=== PATIENT | female | born 1985 | race American Indian/Alaskan Native ===

== ENCOUNTER 2021-12-02 20:06 | Emergency (ER) | payer MEDICAID ==
[2021-12-02 20:14] VITALS: BP 139/79
--- NOTE | 2021-12-03 00:16 | Emergency Department Report ---
ED Extremity Problem HPI - General Chief complaint: Laceration/Recheck/Suture Stated complaint: RT FOOT PAIN Time Seen by Provider: 12/02/21 22:39 Source: patient, family Mode of arrival: Ambulatory Limitations: Physical Limitation - History of Present Illness Initial comments: This patient slipped on some stairs on the of this month with subsequent injury of the right foot. She was seen at the [facility] where they x-rayed and placed in a short leg posterior splint on the extremity. The patient has been taking Motrin for pain and was dispensed crutches. She presents to the emergency department complaining of increased swelling pain and a feeling as though her circulation is being cut off. On questioning it does not appear that the patient is keeping the extremity elevated as she should. MD Complaint: extremity pain, extremity swelling (Right foot) -: days(s) Time: 04:00 Location: right - Related Data Previous Rx's Medication Instructions Recorded Last Taken Type Acetaminophen/Codeine [Tylenol 1 tab PO Q4HR PRN #10 tablet 12/03/21 Unknown Rx /Codeine # 3 tab] Allergies Allergy/AdvReac Type Severity Reaction Status Date / Time Penicillins Allergy Unknown Verified 12/02/21 20:17 ED Review of Systems ROS: Stated complaint: RT FOOT PAIN Other details as noted in HPI Constitutional: denies: chills, fever Skin: denies: rash, lesions Neurological: denies: headache, weakness, numbness, paresthesias ED Past Medical Hx - Medications Home Medications: Home Medications Medication Instructions Recorded Confirmed Last Taken Type Acetaminophen/Codeine [Tylenol 1 tab PO Q4HR PRN #10 tablet 12/03/21 Unknown Rx /Codeine # 3 tab] ED Physical Exam - General Limitations: Physical Limitation General appearance: alert, in no apparent distress - Expanded Lower Extremity Exam Right Hip exam: Present: normal inspection Upper Leg exam: Present: normal inspection Knee exam: Present: normal inspection Lower Leg exam: Present: normal inspection Ankle exam: Present: normal inspection Foot/Toe exam: Present: tenderness (Over the fifth metatarsal), swelling, tenderness at base of 5th metatarsal. Absent: crepidus, erythema Neuro vascular tendon exam: Present: no vascular compromise ED Course Vital Signs 12/02/21 12/03/21 20:10 01:26 Temperature 98.1 F Pulse Rate 79 Respiratory 18 14 Rate Blood Pressure 139/79 O2 Sat by Pulse 99 Oximetry ED Medical Decision Making - Radiology Data Radiology results: report reviewed interpreted by me: Nondisplaced fracture of the base of the fifth metatarsal - Medical Decision Making On evaluation of the posterior splint it is noted to be quite dirty on the undersurface was indicated that the patient has been putting weight on it. An x-ray was obtained to evaluate the extremity. Critical care attestation.: If time is entered above; I have spent that time in minutes in the direct care of this critically ill patient, excluding procedure time. ED Disposition Clinical Impression: Closed nondisplaced fracture of fifth right metatarsal bone Qualifiers: Encounter type: subsequent encounter Disposition: 01 HOME / SELF CARE / HOMELESS Is pt being admited?: No Does the pt Need Aspirin: No Condition: Stable Instructions: Crutch Use, Adult, [id number], Cast or Splint Care, Adult, [id number] Additional Instructions: Please ensure that you follow-up with orthopedic surgeon as planned. Rest and elevate the extremity do not bear any weight on the splint Prescriptions: Acetaminophen/Codeine [Tylenol /Codeine # 3 tab] 1 tab PO Q4HR PRN #10 tablet PRN Reason: Pain Referrals: BRITTNEY BATES MD [Staff Physician] - 3-5 Days
[2021-12-03] MEDS ORDERED: ACETAMINOPHEN W/CODEINE 300-30 MG TAB PO ONE (01:11)
--- NOTE | 2021-12-03 01:36 | XRay Report ---
RIGHT ANKLE 2 VIEWS INDICATION / CLINICAL INFORMATION: Recent injury on 11/22/2021. Complaining of right lower extremity pain and numbness and swelling. COMPARISON: None available. FINDINGS: A splint is present over the lower extremity. I do not see a visible fracture or malalignment on the AP and lateral views. However there is moderate diffuse soft tissue swelling especially laterally. IMPRESSION: Moderate soft tissues swelling. No visible fracture or malalignment of the ankle.. Signer Name: Faustina Cabrales MD Signed: 12/03/2021 1:31 AM Workstation Name: [id number]
--- NOTE | 2021-12-03 01:37 | XRay Report ---
RIGHT FOOT 2 VIEWS INDICATION / CLINICAL INFORMATION: Recent injury on 11/22/2021 complaining of right lower extremity numbness, swelling, and pain.. COMPARISON: None available. FINDINGS: There is a nondisplaced transverse fracture through the base of the fifth metatarsal. Views of the foot are somewhat limited due to the presence of a splint. No additional fractures are n oted. No malalignment identified. IMPRESSION: Nondisplaced transverse fracture involving the base of the fifth metatarsal. This appears subacute. Signer Name: Faustina Cabrales MD Signed: 12/03/2021 1:33 AM Workstation Name: [id number]
== END 2021-12-03 02:57 | disposition home or self-care (01) ==
LOC: ED 20:06
DX: S92.354G Nondisplaced fracture of fifth metatarsal bone, right foot, subsequent encounter for fracture with delayed healing (principal); X58.XXXD Exposure to other specified factors, subsequent encounter; Z88.0 Allergy status to penicillin
CPT/HCPCS: 99283

== ENCOUNTER 2022-03-19 20:07 | Emergency (ER) | payer MEDICAID ==
[2022-03-19] MEDS ORDERED: ASPIRIN 325 MG TAB PO ONE (21:13)
--- NOTE | 2022-03-19 22:07 | XRay Report ---
CHEST 2 VIEWS INDICATION / CLINICAL INFORMATION: chestpain. COMPARISON: None available. FINDINGS: SUPPORT DEVICES: None. HEART / MEDIASTINUM: No significant abnormality. LUNGS / PLEURA: No significant pulmonary or pleural abnormality. No pneumothorax. ADDITIONAL FINDINGS: No significant additional findings. IMPRESSION: 1. No acute findings. Signer Name: Faustina Cabrales MD Signed: 03/19/2022 10:03 PM Workstation Name: [id number]
--- NOTE | 2022-03-19 23:19 | Emergency Department Report ---
ED Chest Pain HPI - General Chief Complaint: Chest Pain Stated Complaint: ANXIETY Time Seen by Provider: 03/19/22 23:12 Source: patient Mode of arrival: Stretcher Limitations: No Limitations - History of Present Illness Initial Comments: Patient is a 36-year-old female with no past medical history presenting with complaint of left-sided chest pain beginning yesterday evening and into this morning. She describes the pain as a tightening sensation and also feeling as someone is punching her in the chest. There were no modifying factors. She currently rates her pain a 1 out of 10. - Related Data Previous Rx's Medication Instructions Recorded Last Taken Type Acetaminophen/Codeine [Tylenol 1 tab PO Q4HR PRN #10 tablet 12/03/21 Unknown Rx /Codeine # 3 tab] Allergies Allergy/AdvReac Type Severity Reaction Status Date / Time Penicillins Allergy Unknown Verified 12/02/21 20:17 Heart Score - HEART Score History: Slightly suspicious EKG: Normal Age: < 45 Risk factors: No known risk factors Troponin: < normal limit HEART Score: 0 - EKG Read Time Time EKG Completed: 18:01 EKG Read Time: 18:05 - Critical Actions Critical Actions: 0-3 pts:0.9-1.7%risk of adverse cardiac event.Candidate for discharge ED Review of Systems ROS: Stated complaint: ANXIETY Other details as noted in HPI Constitutional: denies: chills, fever Respiratory: denies: cough, shortness of breath, wheezing Cardiovascular: chest pain. denies: palpitations Endocrine: no symptoms reported Gastrointestinal: denies: abdominal pain, nausea, diarrhea Musculoskeletal: denies: back pain, joint swelling, arthralgia Skin: denies: rash, lesions Neurological: denies: headache, weakness, paresthesias Psychiatric: denies: anxiety, depression ED Past Medical Hx - Past Medical History Previous Medical History?: Yes Hx Psychiatric Treatment: Yes (Anxiety) - Surgical History Past Surgical History?: No - Social History Smoking Status: Never Smoker Substance Use Type: None - Medications Home Medications: Home Medications Medication Instructions Recorded Confirmed Last Taken Type Acetaminophen/Codeine [Tylenol 1 tab PO Q4HR PRN #10 tablet 12/03/21 Unknown Rx /Codeine # 3 tab] ED Physical Exam - General Limitations: No Limitations General appearance: alert, in no apparent distress - Head Head exam: Present: atraumatic, normocephalic - Neck Neck exam: Present: normal inspection - Respiratory Respiratory exam: Present: normal lung sounds bilaterally. Absent: respiratory distress - Cardiovascular Cardiovascular Exam: Present: regular rate, normal rhythm, normal heart sounds - GI/Abdominal GI/Abdominal exam: Present: soft. Absent: distended, tenderness - Rectal Rectal exam: Present: deferred - Neurological Exam Neurological exam: Present: alert, oriented X3 - Psychiatric Psychiatric exam: Present: normal affect, normal mood - Skin Skin exam: Present: warm, dry, intact, normal color ED Course Vital Signs 03/19/22 03/20/22 03/20/22 20:07 00:21 00:30 Temperature 98 F Pulse Rate 76 78 Respiratory 18 25 H 27 H Rate Blood Pressure 124/76 110/68 O2 Sat by Pulse 100 100 Oximetry 03/20/22 03/20/22 03/20/22 00:46 01:00 01:16 Temperature Pulse Rate 83 77 81 Respiratory 29 H 25 H 26 H Rate Blood Pressure 110/68 108/61 108/61 O2 Sat by Pulse 100 100 100 Oximetry 03/20/22 03/20/22 03/20/22 01:30 01:46 02:00 Temperature Pulse Rate 84 90 74 Respiratory 29 H 20 24 Rate Blood Pressure 108/61 108/61 108/61 O2 Sat by Pulse 100 100 100 Oximetry 03/20/22 03/20/22 03/20/22 02:16 02:30 02:46 Temperature Pulse Rate 67 70 74 Respiratory 23 12 23 Rate Blood Pressure 108/61 108/61 108/61 O2 Sat by Pulse 100 99 99 Oximetry 03/20/22 03/20/22 03/20/22 03:00 03:16 03:30 Temperature Pulse Rate 74 79 65 Respiratory 22 28 H 22 Rate Blood Pressure 105/63 105/63 105/63 O2 Sat by Pulse 99 98 99 Oximetry 03/20/22 03:46 Temperature Pulse Rate 65 Respiratory 21 Rate Blood Pressure 105/63 O2 Sat by Pulse 100 Oximetry ED Medical Decision Making - Lab Data Result diagrams: 03/19/22 23:17 03/19/22 23:17 - EKG Data -: EKG Interpreted by Nh EKG shows normal: sinus rhythm, axis, intervals, QRS complexes, ST-T waves - Radiology Data Radiology results: report reviewed No acute findings on chest x-ray. - Medical Decision Making No acute findings on EKG or chest x-ray. CBC and CMP unremarkable. 2 sets of troponins are undetectable. Heart score 0. Patient stable for discharge home with return precautions. Critical care attestation.: If time is entered above; I have spent that time in minutes in the direct care of this critically ill patient, excluding procedure time. ED Disposition Clinical Impression: Acute nonspecific chest pain with low risk of coronary artery disease Disposition: 01 HOME / SELF CARE / HOMELESS Is pt being admited?: No Condition: Stable Instructions: Chest Pain (ED), Nonspecific Chest Pain, Adult Additional Instructions: Please follow-up with your regular doctor as needed. You may return if your symptoms worsen. Time of Disposition: 05:07
[2022-03-19 23:39] LABS: Basophils # (Auto) 0.1 K/mm3 (0.0-0.1); Basophils % (Auto) 0.7 % (0.0-1.8); Eosinophils # (Auto) 0.2 K/mm3 (0.0-0.4); Eosinophils % (Auto) 2.1 % (0.0-4.3); Hematocrit 41.8 % (30.3-42.9); Hemoglobin 13.8 gm/dl (10.1-14.3); Lymphocytes # (Auto) 2.9 K/mm3 (1.2-5.4); Lymphocytes % (Auto) 28.6 % (13.4-35.0); Mean Corpuscular HGB Conc 33 % (30-34); Mean Corpuscular Volume 95 fl (79-97); Monocytes # (Auto) 0.9 K/mm3 (0.0-0.8); Monocytes % (Auto) 8.6 % (0.0-7.3); Platelet Count 226 K/mm3 (140-440); Red Blood Count 4.42 M/mm3 (3.65-5.03)
[2022-03-20 00:03] LABS: Alanine Aminotransferase 12 units/L (7-56); Albumin 4.3 g/dL (3.9-5); BUN/Creatinine Ratio 15; Blood Urea Nitrogen 12 mg/dL (7-17); Hemolysis Index 16
[2022-03-20] MEDS ORDERED: ASPIRIN 81 MG TAB CHEW ONE (00:12)
[2022-03-20 06:12] VITALS: BP 97/63
--- NOTE | 2022-03-20 13:32 | Electrocardiograph Report ---
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
--- NOTE | 2022-03-22 17:01 | Electrocardiograph Report ---
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
== END 2022-03-20 06:13 | disposition home or self-care (01) ==
LOC: ED 20:07
DX: R07.89 Other chest pain (principal); F41.9 Anxiety disorder, unspecified
CPT/HCPCS: 36415; 71046; 80053; 84484; 85025; 93005; 99284

== ENCOUNTER 2022-04-07 10:25 | Emergency (ER) | payer MEDICAID ==
[2022-04-07] MEDS ORDERED: ASPIRIN 325 MG TAB PO ONE (11:37)
--- NOTE | 2022-04-07 11:59 | XRay Report ---
CHEST 2 VIEWS INDICATION / CLINICAL INFORMATION: chest pain. COMPARISON: 03/19/2022 FINDINGS: SUPPORT DEVICES: None. HEART / MEDIASTINUM: No significant abnormality. LUNGS / PLEURA: No significant pulmonary or pleural abnormality. No pneumothorax. ADDITIONAL FINDINGS: No significant additional findings. IMPRESSION: 1. No acute findings. Signer Name: Chuck Moncada DO Signed: 04/07/2022 11:54 AM Workstation Name: [id number]
[2022-04-07 12:29] LABS: Basophils % (Auto) 0.6 % (0.0-1.8); Eosinophils # (Auto) 0.2 K/mm3 (0.0-0.4); Eosinophils % (Auto) 2.2 % (0.0-4.3); Hemoglobin 12.7 gm/dl (10.1-14.3); Lymphocytes # (Auto) 2.1 K/mm3 (1.2-5.4); Lymphocytes % (Auto) 31.2 % (13.4-35.0); Mean Corpuscular HGB Conc 33 % (30-34); Mean Corpuscular Volume 95 fl (79-97); Monocytes # (Auto) 0.8 K/mm3 (0.0-0.8); Monocytes % (Auto) 11.9 % (0.0-7.3); Platelet Count 176 K/mm3 (140-440); Red Blood Count 4.02 M/mm3 (3.65-5.03); Red Cell Distribution Width 13.9 % (13.2-15.2)
[2022-04-07 12:46] LABS: Alanine Aminotransferase 12 units/L (7-56); Albumin 3.8 g/dL (3.9-5); BUN/Creatinine Ratio 11; Blood Urea Nitrogen 8 mg/dL (7-17); Calcium 9.1 mg/dL (8.4-10.2); Hemolysis Index 9
--- NOTE | 2022-04-07 14:13 | Electrocardiograph Report ---
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
--- NOTE | 2022-04-07 15:39 | Emergency Department Report ---
ED Chest Pain HPI - General Chief Complaint: Chest Pain Stated Complaint: CHEST PAIN/REACTION FROM MEDS PUI?: No Time Seen by Provider: 04/07/22 15:15 Source: patient Mode of arrival: Ambulatory Limitations: No Limitations - History of Present Illness Initial Comments: Patient is a 36-year-old female who presents emergency room with complaints of left-sided chest pain. Patient states the chest pain started 3 days ago. Patient states the chest pain is worsening. Patient states the chest pain is better with rest and worse with movement. Patient states the chest pain when she is sitting still is a 2 out of 10. Patient states the chest pain is a 4 out of 10 when she moves her left arm or palpates her left chest. Patient states when she palpates her left chest that reproduces the symptoms. Patient states she has an appointment already with her primary care to evaluate this but she had a increase in the pain and decided to come to the emergency room. Patient denies shortness of breath. Patient denies cough. Patient denies difficulty breathing. Patient denies recent travel. Patient denies recent international travel. Patient denies exposure to the novel coronavirus. Patient denies sick contacts. Patient denies fever and chills. Patient denies cough. Patient denies diarrhea. Patient denies coming in contact with anybody with symptoms of the novel coronavirus. Patient states she has a past medical history of acid reflux, hyperlipidemia, hypothyroidism. Patient states she is currently taking Flagyl for UTI that was given by an urgent care. Patient states that the acid reflux increased when she started taking the Flagyl. Patient states she is taking Pepcid for acid reflux. Patient states she is taking a atorvastatin for her cholesterol. Complaint: chest pain -: Sudden, days(s) Onset: during rest Pain Location: left chest Pain Radiation: none Severity: mild Severity scale (0 -10): 2 Quality: pressure Consistency: constant Improves With: rest Worsens With: palpation, movement re: denies: nausea, vomting, diaphoresis, dyspnea, sense of impending doom Other Symptoms: denies: cough, fever, syncope, rash, acid taste in mouth, leg swelling, palpitations, burping Treatments Prior to Arrival: none Aspirin use within the Past 7 Days: (0) No - Related Data On Oral Contraceptives: No Previous Rx's Medication Instructions Recorded Last Taken Type Acetaminophen/Codeine [Tylenol 1 tab PO Q4HR PRN #10 tablet 12/03/21 Unknown Rx /Codeine # 3 tab] Allergies Allergy/AdvReac Type Severity Reaction Status Date / Time Penicillins Allergy Unknown Verified 12/02/21 20:17 Heart Score - HEART Score History: Slightly suspicious EKG: Normal Age: < 45 Risk factors: No known risk factors Troponin: < normal limit HEART Score: 0 - EKG Read Time Time EKG Completed: 00:00 EKG Read Time: 00:00 ED Review of Systems ROS: Stated complaint: CHEST PAIN/REACTION FROM MEDS Other details as noted in HPI Constitutional: denies: chills, fever Eyes: denies: eye pain, eye discharge, vision change ENT: denies: ear pain, throat pain Respiratory: denies: cough, shortness of breath, wheezing Cardiovascular: as per HPI, chest pain. denies: palpitations Endocrine: no symptoms reported Gastrointestinal: denies: abdominal pain, nausea, diarrhea Genitourinary: denies: urgency, dysuria, discharge Musculoskeletal: denies: back pain, joint swelling, arthralgia Skin: denies: rash, lesions Neurological: denies: headache, weakness, paresthesias Psychiatric: denies: anxiety, depression Hematological/Lymphatic: denies: easy bleeding, easy bruising ED Past Medical Hx - Past Medical History Previous Medical History?: Yes Hx Hypertension: No Hx CVA: No Hx Heart Attack/AMI: No Hx Congestive Heart Failure: No Hx Diabetes: No Hx Deep Vein Thrombosis: No Hx Psychiatric Treatment: Yes (Anxiety) Additional medical history: Hyperlipidemia, hypothyroidism, acid reflux - Surgical History Past Surgical History?: No - Family History Family history: no significant - Social History Smoking Status: Never Smoker Substance Use Type: None - Medications Home Medications: Home Medications Medication Instructions Recorded Confirmed Last Taken Type Acetaminophen/Codeine [Tylenol 1 tab PO Q4HR PRN #10 tablet 12/03/21 Unknown Rx /Codeine # 3 tab] ED Physical Exam - General Limitations: No Limitations General appearance: alert, in no apparent distress - Head Head exam: Present: atraumatic, normocephalic - Eye Eye exam: Present: normal appearance - ENT ENT exam: Present: mucous membranes moist - Neck Neck exam: Present: normal inspection - Respiratory Respiratory exam: Present: normal lung sounds bilaterally, chest wall tenderness (Palpation of the left chest reproduces symptoms. Patient has tenderness to palpation over the left chest. Patient's pain also increased by movement of the left upper extremity.). Absent: respiratory distress - Cardiovascular Cardiovascular Exam: Present: regular rate, normal rhythm. Absent: systolic murmur, diastolic murmur, rubs, gallop - GI/Abdominal GI/Abdominal exam: Present: soft, normal bowel sounds - Extremities Exam Extremities exam: Present: normal inspection - Back Exam Back exam: Present: normal inspection - Neurological Exam Neurological exam: Present: alert, oriented X3 - Psychiatric Psychiatric exam: Present: normal affect, normal mood - Skin Skin exam: Present: warm, dry, intact, normal color. Absent: rash ED Course Vital Signs 04/07/22 11:01 Temperature 98.5 F Pulse Rate 72 Respiratory 18 Rate Blood Pressure 133/88 [Left] O2 Sat by Pulse 100 Oximetry - Reevaluation(s) Reevaluation #1: I discussed all results and clinical findings with patient. I discussed plan of care with patient. Patient agrees with plan of care. Patient is stable for discharge. Patient will be discharged home. Patient given discharge instructions. Patient voiced understanding of discharge instructions. 04/07/22 15:38 GRAHAM score - Graham Score Age > 65: (0) No Aspirin use within the Past 7 Days: (0) No 3 or more CAD Risk Factors: (0) No 2 or more Angina events in past 24 hrs: (0) No Known CAD with more than 50% Stenosis: (0) No Elevated Cardiac Markers: (0) No ST Deviation Greater than 0.5mm: (0) No GRAHAM Score: 0 ED Medical Decision Making - Lab Data Result diagrams: 04/07/22 12:04 04/07/22 12:04 - EKG Data -: EKG Interpreted by Me EKG shows normal: sinus rhythm, axis, intervals, QRS complexes, ST-T waves Rate: normal - Radiology Data Radiology results: report reviewed, image reviewed interpreted by me: Chest x-ray: No pneumonia, no pneumothorax, no foreign body, no osseous findings, no acute findings CHEST 2 VIEWS INDICATION / CLINICAL INFORMATION: chest pain. COMPARISON: 03/19/2022 FINDINGS: SUPPORT DEVICES: None. HEART / MEDIASTINUM: No significant abnormality. LUNGS / PLEURA: No significant pulmonary or pleural abnormality. No pneumothorax. ADDITIONAL FINDINGS: No significant additional findings. IMPRESSION: 1. No acute findings. - Medical Decision Making Patient is a 36-year-old female who presents emergency room with left-sided chest pain going on for 3 days. Patient's chest pain is consistent with a left chest sprain and musculoskeletal pain. Patient on exam showed tenderness to palpation over the left chest as well as increased pain with movement of the left upper extremity. Patient's chest pain was nonradiating. Patient had no shortness of breath. Patient had a chest x-ray done was negative for acute finding. Patient had an EKG done which was negative for acute findings showed no ST changes. Patient's EKG and chest x-ray reviewed by me. Patient had labs done. Patient's labs were essentially unremarkable. Patient had cardiac enzymes negative x2. Patient's chest pain is not appear to be heart related. Patient is stable for discharge. Patient not require any further emergency medical service. Patient can be followed as an outpatient. Patient not require inpatient services. I discussed all results and clinical findings with patient. I discussed plan of care with patient. Patient agrees with plan of care. Patient is stable for discharge. Patient will be discharged home. Patient given discharge instructions. Patient voiced understanding of discharge instructions. - Differential Diagnosis Chest pain, acid reflux, muscular skeletal pain, chest wall sprain Critical care attestation.: If time is entered above; I have spent that time in minutes in the direct care of this critically ill patient, excluding procedure time. ED Disposition Clinical Impression: Chest pain Qualifiers: Chest pain type: unspecified Qualified Code(s): R07.9 - Chest pain, unspecified Sprain of chest wall Qualifiers: Encounter type: initial encounter Qualified Code(s): S23.8XXA - Sprain of other specified parts of thorax, initial encounter Disposition: 01 HOME / SELF CARE / HOMELESS Is pt being admited?: No Does the pt Need Aspirin: No Condition: Stable Instructions: Chest Wall Pain, [id number], Nonspecific Chest Pain, Adult Additional Instructions: Patient to follow-up with primary care in 2 to 3 days. Patient to rest. Patient to increase water. Patient to avoid strenuous exercise or heavy lifting until cleared by primary care. Patient to take Tylenol or ibuprofen as needed for pain. Patient to return to the ER if condition worsens, changes or new symptoms arise. Referrals: YOANA OSEGUERA PA [Primary Care Provider] - 2-3 Days Time of Disposition: 15:42
[2022-04-07 18:19] VITALS: BP 112/80
== END 2022-04-07 18:21 | disposition home or self-care (01) ==
LOC: ED 10:25
DX: S23.8XXA Sprain of other specified parts of thorax, initial encounter (principal); R07.9 Chest pain, unspecified; F41.9 Anxiety disorder, unspecified; Z88.0 Allergy status to penicillin; X58.XXXA Exposure to other specified factors, initial encounter; Y93.89 Activity, other specified; Y92.89 Other specified places as the place of occurrence of the external cause; Y99.8 Other external cause status
CPT/HCPCS: 36415; 71046; 80053; 84484; 85025; 93005; 99283

== ENCOUNTER 2022-04-21 18:02 | Inpatient (IN) | payer MEDICAID ==
[2022-04-21 18:53] LABS: Basophils # (Auto) 0.1 K/mm3 (0.0-0.1); Basophils % (Auto) 0.7 % (0.0-1.8); Eosinophils # (Auto) 0.2 K/mm3 (0.0-0.4); Eosinophils % (Auto) 1.5 % (0.0-4.3); Hematocrit 38.5 % (30.3-42.9); Hemoglobin 12.6 gm/dl (10.1-14.3); Lymphocytes # (Auto) 2.2 K/mm3 (1.2-5.4); Lymphocytes % (Auto) 16.6 % (13.4-35.0); Mean Corpuscular HGB Conc 33 % (30-34); Mean Corpuscular Volume 94 fl (79-97); Monocytes # (Auto) 1.1 K/mm3 (0.0-0.8); Monocytes % (Auto) 8.4 % (0.0-7.3); Platelet Count 198 K/mm3 (140-440); Red Blood Count 4.08 M/mm3 (3.65-5.03); Red Cell Distribution Width 14.3 % (13.2-15.2)
--- NOTE | 2022-04-21 18:54 | Emergency Department Report ---
ED Neuro Deficit HPI - General Chief Complaint: Weakness Stated Complaint: LT SIDE NUMBNESS Time Seen by Provider: 04/21/22 18:45 Source: patient, EMS Mode of arrival: Ambulatory Limitations: No Limitations - History of Present Illness Initial Comments: Patient is a 36-year-old female with complaints of left-sided weakness and left- sided numbness and tingling. Patient states she has a prior stroke but she is having increased weakness on her left side. Patient dates she have difficulty walking. Patient states that her symptoms started last night however improved and returned today at 5 PM. Patient's last known well time was 5 PM. Patient denies chest pain. Patient denies shortness of breath. Patient states that he is having difficulties feeling her left arm and left leg. Patient denies recent travel. Patient denies recent international travel. Patient denies exposure to the novel coronavirus. Patient denies sick contacts. Patient denies fever and chills. Patient denies cough. Patient denies diarrhea. Patient denies coming in contact with anybody with symptoms of the novel coronavirus. -: Sudden Presenting Symptoms: Present: Weak/Paralyzed One Side History of same: Yes Place: home Severity: severe Improves With: none Worsens With: none On Anticoagulants: No Context: sudden onset Associated Symptoms: denies other symptoms - Related Data Home Medications: Previous Rx's Medication Instructions Recorded Last Taken Type Acetaminophen/Codeine [Tylenol 1 tab PO Q4HR PRN #10 tablet 12/03/21 Unknown Rx /Codeine # 3 tab] Allergies/Adverse Reactions: Allergies Allergy/AdvReac Type Severity Reaction Status Date / Time Penicillins Allergy Unknown Verified 04/21/22 18:27 ED Review of Systems ROS: Stated complaint: LT SIDE NUMBNESS Other details as noted in HPI Constitutional: denies: chills, fever Eyes: denies: eye pain, eye discharge, vision change ENT: denies: ear pain, throat pain Respiratory: denies: cough, shortness of breath, wheezing Cardiovascular: denies: chest pain, palpitations Endocrine: no symptoms reported Gastrointestinal: denies: abdominal pain, nausea, diarrhea Genitourinary: denies: urgency, dysuria, discharge Musculoskeletal: denies: back pain, joint swelling, arthralgia Skin: denies: rash, lesions Neurological: as per HPI, weakness, numbness, abnormal gait. denies: headache Psychiatric: denies: anxiety, depression Hematological/Lymphatic: denies: easy bleeding, easy bruising ED Past Medical Hx - Past Medical History Previous Medical History?: Yes Hx Hypertension: Yes Hx CVA: Yes Hx Heart Attack/AMI: No Hx Congestive Heart Failure: No Hx Diabetes: No Hx Deep Vein Thrombosis: No Hx Psychiatric Treatment: Yes (Anxiety) Additional medical history: Hyperlipidemia, hypothyroidism, acid reflux - Surgical History Past Surgical History?: No - Family History Family history: no significant - Social History Smoking Status: Never Smoker Substance Use Type: None - Medications Home Medications: Home Medications Medication Instructions Recorded Confirmed Last Taken Type Acetaminophen/Codeine [Tylenol 1 tab PO Q4HR PRN #10 tablet 12/03/21 Unknown Rx /Codeine # 3 tab] ED Neuro Physical Exam - General Limitations: No Limitations General appearance: alert, in no apparent distress Suspected Stroke: Yes - Head Head exam: Present: atraumatic, normocephalic - Eye Eye exam: Present: normal appearance - ENT ENT exam: Present: mucous membranes moist - Neck Neck exam: Present: normal inspection - Respiratory Respiratory exam: Present: normal lung sounds bilaterally. Absent: respiratory distress, wheezes, rales, rhonchi - Cardiovascular Cardiovascular Exam: Present: regular rate, normal rhythm. Absent: systolic murmur, diastolic murmur, rubs, gallop - GI/Abdominal GI/Abdominal exam: Present: soft, normal bowel sounds - Extremities Exam Extremities exam: Present: normal inspection - Back Exam Back exam: Present: normal inspection - Neurological Exam Neurological exam: Present: alert, oriented X3 - NIHSS Assessment Interval: Baseline 1a. Level of Consciousness: alert/keenly responsive 1b. LOC Questions: answers both correctly 1c. LOC Commands: performs tasks correctly 2. Best Gaze: normal 3. Visual: no visual loss 4. Facial Palsy: normal symmetrical movement 5b. Motor Arm Right: no drift 5a. Motor Arm Left: no gravity effort 6a. Motor Leg Left: no drift 6b. Motor Leg Right: no drift 7. Limb Ataxia: absent 8. Sensory: normal 9. Best Language: no aphasia 10. Dysarthria: normal 11. Extinction/Inattention: no abnormality Total Score: 3 Stroke Severity: Minor Stroke - Psychiatric Psychiatric exam: Present: normal affect, normal mood - Skin Skin exam: Present: warm, dry, intact, normal color. Absent: rash ED Course Vital Signs 04/21/22 18:03 Temperature 97.9 F Pulse Rate 93 H Respiratory 18 Rate Blood Pressure 141/99 [Left] O2 Sat by Pulse 100 Oximetry - Reevaluation(s) Reevaluation #1: Patient evaluated. Initial evaluation done. Code stroke initiated. 04/21/22 184 Reevaluation #2: I discussed all results with patient. I discussed plan of care with patient. Patient agrees with plan of care and admission. Patient to be admitted to the hospitalist service. 04/21/22 20:07 - Consultations Consultation #1: I discussed the case with neurology multiple times. Neurology assessed the patient and does not recommend tPA. Neurology also does not recommend a CTA in the ER. Neurology recommends admission for further stroke work-up due to her history of stroke. 04/21/22 19:57 - Lab Data Result diagrams: 04/21/22 18:40 04/21/22 18:40 Lab Results 04/21/22 04/21/22 04/21/22 Range/Units 18:40 18:40 18:40 WBC 13.3 H (4.5-11.0) K/mm3 RBC 4.08 (3.65-5.03) M/mm3 Hgb 12.6 (10.1-14.3) gm/dl Hct 38.5 (30.3-42.9) % MCV 94 (79-97) fl MCH 31 (28-32) pg MCHC 33 (30-34) % RDW 14.3 (13.2-15.2) % Plt Count 198 (140-440) K/mm3 Lymph % (Auto) 16.6 (13.4-35.0) % [place] % (Auto) 8.4 H (0.0-7.3) % Eos % (Auto) 1.5 (0.0-4.3) % Baso % (Auto) 0.7 (0.0-1.8) % Lymph # (Auto) 2.2 (1.2-5.4) K/mm3 [place] # (Auto) 1.1 H (0.0-0.8) K/mm3 Eos # (Auto) 0.2 (0.0-0.4) K/mm3 Baso # (Auto) 0.1 (0.0-0.1) K/mm3 Seg Neutrophils % 72.8 H (40.0-70.0) % Seg Neutrophils # 9.6 H (1.8-7.7) K/mm3 PT 78.7 H (12.2-14.9) Sec. INR 7.81 H* (0.87-1.13) APTT 92.7 H* (24.2-36.6) Sec. Thrombin Time 14.5 L (15.1-19.6) Sec. Sodium 135 L (137-145) mmol/L Potassium 3.5 L (3.6-5.0) mmol/L Chloride 100.5 (98-107) mmol/L Carbon Dioxide 23 (22-30) mmol/L Anion Gap 15 mmol/L BUN 6 L (7-17) mg/dL Creatinine 0.8 (0.6-1.2) mg/dL Estimated GFR > 60 ml/min BUN/Creatinine Ratio 8 % Glucose 85 (65-100) mg/dL Calcium 8.8 (8.4-10.2) mg/dL Total Bilirubin 0.80 (0.1-1.2) mg/dL AST 12 (5-40) units/L ALT 10 (7-56) units/L Alkaline Phosphatase 36 (35-129) units/L Total Creatine Kinase 37 (30-135) units/L CK-MB (CK-2) < 1.0 (0.0-4.0) ng/mL CK-MB (CK-2) Rel Index 2.7 (0-4) Troponin T < 0.010 (0.00-0.029) ng/mL Total Protein 7.4 (6.3-8.2) g/dL Albumin 3.9 (3.9-5) g/dL Albumin/Globulin Ratio 1.1 % - Radiology Data Radiology results: report reviewed, image reviewed CT head/brain wo con INDICATION / CLINICAL INFORMATION: 36 years Female; Stroke symptoms. TECHNIQUE: Routine CT head without contrast. All CT scans at this location are performed using CT dose reduction for ALARA by means of automated exposure control. COMPARISON: None. FINDINGS: BRAIN / INTRACRANIAL CONTENTS: No acute hemorrhage, mass effect, midline shift, hydrocephalus, or acute, large territorial infarct. No signs of significant atrophy or chronic infarct. No significant white matter abnormality seen. CRANIOCERVICAL JUNCTION: No significant abnormality. ORBITS: No significant abnormality of visualized orbits. SINUSES / MASTOIDS: Visualized paranasal sinuses and mastoid air cells are essentially clear. ADDITIONAL FINDINGS: None. IMPRESSION: 1. No focal mass, hemorrhage, hydrocephalus, or acute, large territorial infarct. - Medical Decision Making Patient is a 36-year-old female with a history of stroke that presents emergency room with left-sided weakness and left-sided numbness and tingling. Patient initially stated that she was having difficulties moving the left upper extremity more than usual. During the time in the ER the patient states that her left arm movement returned to normal. Patient still complains of left-sided numbness. A code stroke was initiated after the initial evaluation. Patient evaluated by neurology. Neurology did not recommend tPA or CTA in the ER. Neurology recommends admission for stroke work-up with an MRI and MRA. Patient had labs done which were essentially unremarkable except for a supratherapeutic INR. Patient admitted to the hospital service for further evaluation treatment. Critical care time documented due to the multiple reassessments, prolonged time at the bedside, interpretation of diagnostics and labs and discussion with consultants.. - Differential Diagnosis CVA, left-sided weakness, left-sided numbness Critical Care Time: Yes Critical care time in (mins) excluding proc time.: 35 Critical care attestation.: If time is entered above; I have spent that time in minutes in the direct care of this critically ill patient, excluding procedure time. Critical Care Time: 35 minutes ED Disposition Clinical Impression: Left-sided weakness, Numbness on left side, Supratherapeutic INR CVA (cerebral vascular accident) Qualifiers: CVA mechanism: unspecified Qualified Code(s): I63.9 - Cerebral infarction, unspecified Disposition: ADMITTED INPATIENT Is pt being admited?: Yes Does the pt Need Aspirin: No Condition: Critical Time of Disposition: 20:06
[2022-04-21 19:11] LABS: Alanine Aminotransferase 10 units/L (7-56); Albumin 3.9 g/dL (3.9-5); BUN/Creatinine Ratio 8; Blood Urea Nitrogen 6 mg/dL (7-17); Calcium 8.8 mg/dL (8.4-10.2); Hemolysis Index 7
[2022-04-21 19:12] LABS: Creatine Kinase MB < 1.0 ng/mL (0.0-4.0); Thrombin Time 14.5 Sec. (15.1-19.6)
--- NOTE | 2022-04-21 19:15 | Cat Scan Report ---
CT head/brain wo con INDICATION / CLINICAL INFORMATION: 36 years Female; Stroke symptoms. TECHNIQUE: Routine CT head without contrast. All CT scans at this location are performed using CT dos e reduction for ALARA by means of automated exposure control. COMPARISON: None. FINDINGS: BRAIN / INTRACRANIAL CONTENTS: No acute hemorrhage, mass effect, midline shift, hydrocephalus, or acu te, large territorial infarct. No signs of significant atrophy or chronic infarct. No significant whi te matter abnormality seen. CRANIOCERVICAL JUNCTION: No significant abnormality. ORBITS: No significant abnormality of visualized orbits. SINUSES / MASTOIDS: Visualized paranasal sinuses and mastoid air cells are essentially clear. ADDITIONAL FINDINGS: None. IMPRESSION: 1. No focal mass, hemorrhage, hydrocephalus, or acute, large territorial infarct. CODE STROKE: Exam Completed (SUPERVISOR BRIAR SHOP/CDT): 04/21/2022 558 PM Exam Reviewed (SUPERVISOR BRIAR SHOP/CDT): 6:07 PM Time of Communication (SUPERVISOR BRIAR SHOP/CDT): 6:09 PM Licensed Practitioner Receiving Report: Dr. Jarquin Signer Name: Deep Beaver MD, III Signed: 04/21/2022 7:10 PM Workstation Name: [email or web address]
[2022-04-21 19:45] LABS: INR 7.81 (0.87-1.13)
[2022-04-21 19:46] LABS: Partial Thromboplastin Time 92.7 Sec. (24.2-36.6)
--- NOTE | 2022-04-21 20:00 | History and Physical Report ---
History of Present Illness Chief complaint: I am weak and numb on my left side History of present illness: 36 YO Female with Obesity, Autism, HTN, CVA, HLD, Hypothyroidism, GERD presents to ED for evaluation. Patient reports "I am weak and I am on my left side". Patient states that she has experienced sudden onset of weakness on her left side. Patient acknowledges difficulty with balance. EMS was notified and upon arrival the patient was found to be in distress with a new focal neurologic deficit. A code stroke was called and the patient was transported to [facility] for further care and evaluation of the aforementioned symptoms. The patient was seen and evaluated in the emergency department. All lab and imaging studies reviewed. Patient found to have a focal neurologic deficit with clinical symptoms consistent with acute CVA. Patient admitted to medical floor and initiated on CVA protocol due to increased risk of worsening symptoms and for medical stabilization. Patient denies fever, chills, chest pain, palpitation, productive cough, skin rash and recent contact, known exposure to COVID-19. No prior admission for review. No medication listed at time of admission for reconciliation. Advanced care planning conducted in ED. Past History Past Medical History: hypertension, hyperlipidemia, stroke, other (See HPI) Past Surgical History: No surgical history, Other (Reviewed) Social history: single, lives with family. denies: smoking, alcohol abuse, prescription drug abuse Family history: diabetes, hypertension Medications and Allergies Allergies Allergy/AdvReac Type Severity Reaction Status Date / Time Penicillins Allergy Unknown Verified 04/21/22 18:27 Home Medications Medication Instructions Recorded Confirmed Last Taken Type Acetaminophen/Codeine [Tylenol 1 tab PO Q4HR PRN #10 tablet 12/03/21 Unknown Rx /Codeine # 3 tab] Review of Systems Constitutional: no weight loss, no weight gain, no fever, no sweats Ears, nose, mouth and throat: no ear pain, no tinnitis, no nose pain, no nasal congestion Breasts: no change in shape, no mass Cardiovascular: no orthopnea, no palpitations, no edema, no lightheadedness Respiratory: no cough with sputum, no hemoptysis, no shortness of breath Gastrointestinal: no abdominal pain, no nausea, no diarrhea, no constipation Genitourinary Female: no pelvic pain, no flank pain, no dysuria, no urinary frequency, no stress incontinence Rectal: no pain, no incontinence, no bleeding Musculoskeletal: no neck stiffness, no shooting arm pain, no arm numbness/tingling Integumentary: no rash, no sores, no wounds, no jaundice, no blisters Neurological: ataxia, balance difficulties, gait dysfunction, motor disturbance Psychiatric: no anxiety, no memory loss, no change in sleep habits, no insomnia, no hypersomnia, no change in libido, no suicidal ideation Endocrine: no heat intolerance, no polydipsia, no polyuria, no excessive sweating, no flushing Hematologic/Lymphatic: no easy bruising, no lymphadenopathy, no lymphedema Allergic/Immunologic: no urticaria, no allergic rhinitis, no wheezing, no persistent infections Exam - Constitutional Vitals: Temp Pulse Resp BP Pulse Ox 97.9 F 93 H 18 141/99 100 04/21/22 18:03 04/21/22 18:03 04/21/22 18:03 04/21/22 18:03 04/21/22 18:03 General appearance: Present: mild distress - EENT Eyes: Present: PERRL ENT: hearing intact, clear oral mucosa - Neck Neck: Present: supple, normal ROM - Respiratory Respiratory effort: normal Respiratory: bilateral: CTA - Cardiovascular Heart Sounds: Present: S1 & S2. Absent: rub, click - Extremities Extremities: pulses symmetrical, No edema Peripheral Pulses: within normal limits - Abdominal General gastrointestinal: Present: soft, non-tender, non-distended, normal bowel sounds Female genitourinary: Present: normal - Integumentary Integumentary: Present: clear, warm, dry - Musculoskeletal Musculoskeletal: left sided weakness - Psychiatric Psychiatric: appropriate mood/affect, intact judgment & insight - Neurologic Neurologic: CNII-XII intact, moves all extremities HEART Score - HEART Score Troponin: Troponin T < 0.010 ng/mL (0.00-0.029) 04/21/22 18:40 Results - Labs CBC & Chem 7: 04/21/22 18:40 04/21/22 18:40 Labs: Abnormal lab results 04/21/22 04/21/22 04/21/22 Range/Units 18:40 18:40 18:40 WBC 13.3 H (4.5-11.0) K/mm3 [place] % (Auto) 8.4 H (0.0-7.3) % [place] # (Auto) 1.1 H (0.0-0.8) K/mm3 Seg Neutrophils % 72.8 H (40.0-70.0) % Seg Neutrophils # 9.6 H (1.8-7.7) K/mm3 PT 78.7 H (12.2-14.9) Sec. INR 7.81 H* (0.87-1.13) APTT 92.7 H* (24.2-36.6) Sec. Thrombin Time 14.5 L (15.1-19.6) Sec. Sodium 135 L (137-145) mmol/L Potassium 3.5 L (3.6-5.0) mmol/L BUN 6 L (7-17) mg/dL Assessment and Plan - Patient Problems (1) CVA (cerebral vascular accident) Current Visit: Yes Status: Acute Qualifiers: CVA mechanism: unspecified Qualified Code(s): I63.9 - Cerebral infarction, unspecified Plan to address problem: CVA protocol: CT scan head, physical therapy consulted, Occupational Therapy consulted, speech therapy consulted, antiplatelet therapy, lipid panel, statin therapy, telemetry neurology consulted, echocardiogram, carotid Doppler. (2) Left hemiparesis Current Visit: Yes Status: Acute Plan to address problem: Physical therapy consulted, supportive care. (3) SIRS (systemic inflammatory response syndrome) Current Visit: Yes Status: Acute Plan to address problem: CBC, urinalysis, chest x-ray, empiric IV antibiotic therapy x1 dose, repeat CBC in AM. (4) Hyponatremia syndrome Current Visit: Yes Status: Acute Plan to address problem: IV fluid resuscitation therapy, BMP, repeat BMP in a.m. (5) Supratherapeutic INR Current Visit: Yes Status: Acute Plan to address problem: Hold anticoagulation at this time. Repeat INR in AM. (6) DVT prophylaxis Current Visit: Yes Status: Acute (7) Advance care planning Current Visit: Yes Status: Acute Plan to address problem: Disease education done, care plan discussed, diagnosis discussed, prognosis discussed, patient is full code. Patient knowledges understanding agreement with care plan, +30 minutes. (8) Preventative health care Current Visit: Yes Status: Acute Plan to address problem: Patient counseled guarding medication compliance, outpatient follow-up with primary care physician for all age and risk factor appropriate screening test.
[2022-04-21] MEDS ORDERED: ALBUTEROL 2.5 MG/3 ML NEBU IH PRN (20:02)
[2022-04-21] MEDS ORDERED: HYDROmorphone 0.5 MG/0.5 ML INJ IV PRN (20:02)
[2022-04-21] MEDS ORDERED: MAGNESIUM HYDROXIDE (MOM) ORAL LIQD UDC PO PRN (20:02)
[2022-04-21] MEDS ORDERED: PROMETHAZINE 25 MG RECT SUPP PR PRN (20:02)
[2022-04-21] MEDS ORDERED: ONDANSETRON 4 MG/2 ML INJ IV PRN (20:02)
[2022-04-21] MEDS ORDERED: METOCLOPRAMIDE 10 MG TAB PO PRN (20:02)
[2022-04-21] MEDS ORDERED: ACETAMINOPHEN 325 MG TAB PO PRN (20:02)
--- NOTE | 2022-04-21 20:02 | Emergency Department Report ---
Blank Doc - Documentation Documentation: [facility] [place] [facility] Consult Note # Demographics Consult Type: Acute Stroke Level 1 (0-4.5 hrs) Patient Location: Emergency Room First Name: Sid Last Name: Radu Date of : 1985 Age: 36 Facility: [facility] Time of Initial Page (Eastern Time): 04/21/2022, 19:34 Time of Return Call (Eastern Time): 04/21/2022, 19:34 # HPI History: 36 year old female who presented with left arm numbness and weakness. Weakness resolved. As per patient, her symptoms have been ongoing for about 2 weeks and she felt they got worse today. Last Known Normal: 2 weeks? # Scores Level of Consciousness 1a: [0] = Alert; keenly responsive LOC Questions 1b: [0] = Answers both questions correctly LOC Commands 1c: [0] = Performs both tasks correctly Best Gaze 2: [0] = Normal Visual 3: [0] = No visual loss Facial Palsy 4: [0] = Normal symmetrical movements Motor Arm Left 5a: [0] = No drift Motor Arm Right 5b: [0] = No drift Motor Leg Left 6a: [0] = No drift Motor Leg Right 6b: [0] = No drift Limb Ataxia 7: [0] = Absent Sensory 8: [1] = [id number] sensory loss Best Language 9: [0] = No aphasia Dysarthria 10: [0] = Normal Extinction and Inattention 11: [0] = No abnormality NIHSS Total: 1 # PMH-FH-SH Past Medical History: hyperlipidemia hypertension Social History: non-smoker non-drinker no drugs lives with family # Data Head CT: no bleed per radiologist read # Assessment Impression: Concern for TIA given worsening of weakness that has since subsided. # Plan Thrombolytic/Intervention: NOT IV Thrombolysis or IA Intervention candidate Thrombolytic Exclusion (< 3 hour window): non-disabling deficit Thrombolytic Exclusion: > 4.5 hours Intraarterial Exclusion: cta pending Blood Pressure Management: IV fluid bolus Target Blood Pressure: SBP < 220 DBP < 105 Labs: CBC comprehensive metabolic panel hemoglobin A1c lipid panel troponin TSH ua Imaging: (urgency: STAT): CT Head without contrast Imaging: (urgency: routine): MR Angiogram Head without contrast MRI Brain without contrast MRA neck without Diagnostic Test: echo with bubble study Medication: aspirin 81 mg daily start statin with goal of LDL < 70 Other: If patient has any neurological deterioration please call me back immediately permissive hypertension telemetry monitoring would not pursue stroke work-up if MRI is negative I have discussed my recommendations with the referring provider Permissive HTN for 24 hours
--- NOTE | 2022-04-21 20:36 | XRay Report ---
CHEST 1 VIEW INDICATION: cough. COMPARISON: 04/07/2022 FINDINGS: Support devices: None. Heart: Normal. Lungs/Pleura: There are mild increased interstitial/reticular opacities. No consolidation or effusion . No pneumothorax. IMPRESSION: 1. Mild increased interstitial opacities could be seen in the setting of lower airways disease or aty pical pneumonia. No focal consolidation. Signer Name: Gregor James MD Signed: 04/21/2022 8:31 PM Workstation Name: [id number]
[2022-04-21] MEDS ORDERED: cefTRIAXone/NS 1 GM/50 ML 1 GM/50 ML BAG IV ONE (21:45)
[2022-04-22 03:48] LABS: Bilirubin,Urine Negative (Negative); Blood,Urine Moderate (Negative); Color,Urine Colorless (Yellow)
[2022-04-22 03:50] LABS: Bacteria,Urine 1+ /HPF (Negative); Mucus,Urine FEW /HPF; WBC,Urine > 182.0 /HPF (0.0-6.0)
[2022-04-22 06:15] LABS: INR 0.96 (0.87-1.13)
[2022-04-22] MEDS: ASPIRIN 325 MG TAB PO SCH (10:52)
--- NOTE | 2022-04-22 10:59 | Progress Note ---
Assessment and Plan Assessment and plan: 36 YO Female with Obesity, Autism, HTN, CVA, HLD, Hypothyroidism, GERD presents to ED for evaluation of sudden onset of weakness on her left side. Patient also reported difficulty with balance. EMS was notified and upon arrival the patient was found to be in distress with a new focal neurologic deficit. A code stroke was called and the patient was transported to [facility] for further care and evaluation of the aforementioned symptoms. The patient was seen and evaluated in the emergency department. All lab and imaging studies reviewed. Patient found to have a focal neurologic deficit with clinical symptoms consistent with acute CVA. Acute CVA Left hemiparesis SIRS Hyponatremia Supratherapeutic INR 04/22/2022. Follow-up echocardiogram and order MRI brain. PT/OT/ST evaluations pending. Continue aspirin and Lipitor for now. Neurology consultation when available. History Interval history: No new issues overnight Hospitalist Physical - Constitutional Vitals: Temp Pulse Resp BP Pulse Ox 99.2 F 85 17 116/53 97 04/21/22 21:40 04/21/22 21:40 04/22/22 00:24 04/21/22 21:40 04/22/22 09:20 General appearance: Present: mild distress - EENT Eyes: Present: PERRL, EOM intact ENT: hearing intact, clear oral mucosa, dentition normal - Neck Neck: Present: supple, normal ROM - Respiratory Respiratory effort: normal Respiratory: bilateral: CTA - Cardiovascular Rhythm: regular Heart Sounds: Present: S1 & S2. Absent: gallop, rub - Extremities Extremities: no ischemia, No edema, Full ROM - Abdominal General gastrointestinal: soft, non-tender, non-distended, normal bowel sounds - Integumentary Integumentary: Present: clear, warm, dry - Neurologic Neurologic: CNII-XII intact, moves all extremities HEART Score - HEART Score Troponin: Troponin T < 0.010 ng/mL (0.00-0.029) 04/21/22 18:40 Results - Labs CBC & Chem 7: 04/21/22 18:40 04/21/22 18:40 Labs: Laboratory Last Values WBC 13.3 K/mm3 (4.5-11.0) H 04/21/22 18:40 RBC 4.08 M/mm3 (3.65-5.03) 04/21/22 18:40 Hgb 12.6 gm/dl (10.1-14.3) 04/21/22 18:40 Hct 38.5 % (30.3-42.9) 04/21/22 18:40 MCV 94 fl (79-97) 04/21/22 18:40 MCH 31 pg (28-32) 04/21/22 18:40 MCHC 33 % (30-34) 04/21/22 18:40 RDW 14.3 % (13.2-15.2) 04/21/22 18:40 Plt Count 198 K/mm3 (140-440) 04/21/22 18:40 Lymph % (Auto) 16.6 % (13.4-35.0) 04/21/22 18:40 [place] % (Auto) 8.4 % (0.0-7.3) H 04/21/22 18:40 Eos % (Auto) 1.5 % (0.0-4.3) 04/21/22 18:40 Baso % (Auto) 0.7 % (0.0-1.8) 04/21/22 18:40 Lymph # (Auto) 2.2 K/mm3 (1.2-5.4) 04/21/22 18:40 [place] # (Auto) 1.1 K/mm3 (0.0-0.8) H 04/21/22 18:40 Eos # (Auto) 0.2 K/mm3 (0.0-0.4) 04/21/22 18:40 Baso # (Auto) 0.1 K/mm3 (0.0-0.1) 04/21/22 18:40 Seg Neutrophils % 72.8 % (40.0-70.0) H 04/21/22 18:40 Seg Neutrophils # 9.6 K/mm3 (1.8-7.7) H 04/21/22 18:40 PT 14.1 Sec. (12.2-14.9) 04/22/22 04:37 INR 0.96 (0.87-1.13) 04/22/22 04:37 APTT 92.7 Sec. (24.2-36.6) H* 04/21/22 18:40 Thrombin Time 14.5 Sec. (15.1-19.6) L 04/21/22 18:40 Sodium 135 mmol/L (137-145) L 04/21/22 18:40 Potassium 3.5 mmol/L (3.6-5.0) L 04/21/22 18:40 Chloride 100.5 mmol/L (98-107) 04/21/22 18:40 Carbon Dioxide 23 mmol/L (22-30) 04/21/22 18:40 Anion Gap 15 mmol/L 04/21/22 18:40 BUN 6 mg/dL (7-17) L 04/21/22 18:40 Creatinine 0.8 mg/dL (0.6-1.2) 04/21/22 18:40 Estimated GFR > 60 ml/min 04/21/22 18:40 BUN/Creatinine Ratio 8 % 04/21/22 18:40 Glucose 85 mg/dL (65-100) 04/21/22 18:40 POC Glucose 104 mg/dL (70-105) 04/22/22 00:18 Calcium 8.8 mg/dL (8.4-10.2) 04/21/22 18:40 Total Bilirubin 0.80 mg/dL (0.1-1.2) 04/21/22 18:40 AST 12 units/L (5-40) 04/21/22 18:40 ALT 10 units/L (7-56) 04/21/22 18:40 Alkaline Phosphatase 36 units/L (35-129) 04/21/22 18:40 Total Creatine Kinase 37 units/L (30-135) 04/21/22 18:40 CK-MB (CK-2) < 1.0 ng/mL (0.0-4.0) 04/21/22 18:40 CK-MB (CK-2) Rel Index 2.7 (0-4) 04/21/22 18:40 Troponin T < 0.010 ng/mL (0.00-0.029) 04/21/22 18:40 Total Protein 7.4 g/dL (6.3-8.2) 04/21/22 18:40 Albumin 3.9 g/dL (3.9-5) 04/21/22 18:40 Albumin/Globulin Ratio 1.1 % 04/21/22 18:40 Urine Color Colorless (Yellow) 04/22/22 03:20 Urine Turbidity Slightly cloudy (Clear) 04/22/22 03:20 Urine pH 7.0 (5.0-7.0) 04/22/22 03:20 Ur Specific [place] 1.010 (1.003-1.030) 04/22/22 03:20 Urine Protein 30 mg/dl mg/dL (Negative) 04/22/22 03:20 Urine Glucose (UA) Negative mg/dL (Negative) 04/22/22 03:20 Urine Ketones Negative mg/dL (Negative) 04/22/22 03:20 Urine Blood Moderate (Negative) A 04/22/22 03:20 Urine Nitrite Negative (Negative) 04/22/22 03:20 Urine Bilirubin Negative (Negative) 04/22/22 03:20 Urine Urobilinogen 2.0 mg/dL (<2.0) 04/22/22 03:20 Ur Leukocyte Esterase Large (Negative) 04/22/22 03:20 Urine WBC (Auto) > 182.0 /HPF (0.0-6.0) H 04/22/22 03:20 Urine RBC (Auto) 11.0 /HPF (0.0-6.0) 04/22/22 03:20 U Epithel Cells (Auto) 1.0 /HPF (0-13.0) 04/22/22 03:20 Urine Bacteria (Auto) 1+ /HPF (Negative) 04/22/22 03:20 Urine WBC Clumps 2+ /HPF 04/22/22 03:20 Urine Mucus Few /HPF 04/22/22 03:20 Urine Yeast (Budding) 1+ /HPF 04/22/22 03:20 Devi/IV: Voiding Method External Female Catheter Active Medications - Current Medications Current Medications: Generic Name Dose Route Start Last Admin Trade Name Freq PRN Reason Stop Dose Admin Acetaminophen 650 mg 04/21/22 20:02 Acetaminophen 325 Mg Tab PO Q4H PRN Pain, Mild (1-3) Albuterol 2.5 mg 04/21/22 20:02 Albuterol 2.5 Mg/3 Ml Nebu IH Q3HRT PRN Shortness Of Breath Aspirin 325 mg 04/22/22 10:00 04/22/22 10:52 Aspirin 325 Mg Tab PO 325 mg QDAY ADE Administration Atorvastatin Calcium 40 mg 04/21/22 22:00 04/21/22 21:36 Atorvastatin 40 Mg Tab PO 40 mg QHS ADE Administration Bisacodyl 10 mg 04/21/22 20:02 Bisacodyl 10 Mg Rect Supp [place] QDAY PRN Constipation Hydromorphone HCl 0.5 mg 04/21/22 20:02 Hydromorphone 0.5 Mg/0.5 Ml Inj IV Q23H PRN Pain , Severe (7-10) Magnesium Hydroxide 30 ml 04/21/22 20:02 Magnesium Hydroxide (Mom) Oral Liqd Udc PO Q4H PRN Constipation Metoclopramide HCl 10 mg 04/21/22 20:02 Metoclopramide 10 Mg Tab PO Q6H PRN Nausea And Vomiting Ondansetron HCl 4 mg 04/21/22 20:02 Ondansetron 4 Mg/2 Ml Inj IV Q8H PRN Nausea And Vomiting Oxycodone/Acetaminophen 1 tab 04/21/22 20:02 Oxycodone /Acetaminophen 5-325mg Tab PO Q16H PRN Pain, Moderate (4-6) Promethazine HCl 25 mg 04/21/22 20:02 Promethazine 25 Mg Rect Supp [place] Q6H PRN Nausea And Vomiting Sodium Chloride 10 ml 04/21/22 20:02 Sodium Chloride 0.9% 10 Ml Flush Syringe IV PRN PRN LINE FLUSH
--- NOTE | 2022-04-22 17:24 | Vascular Lab Report ---
"DUPLEX DOPPLER ULTRASOUND CAROTID, BILATERAL INDICATION: stroke. COMPARISON: None available. FINDINGS: RIGHT CAROTID: No significant atherosclerotic plaque. CCA velocity: 116 cm/sec. ICA peak systolic velocity: 119 cm/sec. ICA/CCA PSV Ratio: 1.0. Right Vertebral Artery: Antegrade flow. LEFT CAROTID: No significant atherosclerotic plaque. CCA velocity: 114 cm/sec. ICA peak systolic velocity: 99 cm/sec. ICA/CCA PSV Ratio: Less than 1. Left Vertebral Artery: Antegrade flow. IMPRESSION: 1. Right Internal Carotid Artery: Less than 50% diameter stenosis. 2. Left Internal Carotid Artery: Less than 50% diameter stenosis. Velocity criteria are extrapolated from diameter data as defined by the Society of Radiologists in Ul trasound Consensus Conference, Radiology 2003; 229;340-346. Degree of || ICA PSV || Plaque || ICA/CCA Stenosis (%) || (cm/sec) || estimate (%) || PSV Ratio - Normal...............<125..............None.................<2.0 - <50....................<125..............<50....................<2.0 - 50-69................125-230.........>50....................2.0-4.0 - >70 but <100....>230..............>50....................>4.0 - Near...................High, low, .....visible................variable occlusion or none - Total...................None.............visible;................N/A occlusion no lumen Signer Name: Gregor James MD Signed: 04/22/2022 5:19 PM Workstation Name: [id number]"
--- NOTE | 2022-04-23 08:39 | Progress Note ---
Assessment and Plan Assessment and plan: 36 YO Female with Obesity, Autism, HTN, CVA, HLD, Hypothyroidism, GERD presents to ED for evaluation of sudden onset of weakness on her left side. Patient also reported difficulty with balance. EMS was notified and upon arrival the patient was found to be in distress with a new focal neurologic deficit. A code stroke was called and the patient was transported to [facility] for further care and evaluation of the aforementioned symptoms. The patient was seen and evaluated in the emergency department. All lab and imaging studies reviewed. Patient found to have a focal neurologic deficit with clinical symptoms consistent with acute CVA. Acute CVA Left hemiparesis SIRS Hyponatremia Supratherapeutic INR 04/22/2022. Follow-up echocardiogram and order MRI brain. PT/OT/ST evaluations pending. Continue aspirin and Lipitor for now. Neurology consultation when available. 04/23/2022. Echocardiogram reveals no PFO and left ventricular systolic function normal with EF of 60%. Mild concentric left ventricular hypertrophy. Carotid Doppler negative. Await MRI of brain and PT/OT/ST evaluations. Continue aspirin and Lipitor. Neurology consultation in a.m. History Interval history: No new issues overnight Hospitalist Physical - Constitutional Vitals: Temp Pulse Resp BP Pulse Ox 97.9 F 84 16 96/49 99 04/22/22 21:25 04/22/22 21:25 04/22/22 21:25 04/22/22 21:25 04/23/22 00:00 General appearance: Present: no acute distress - EENT Eyes: Present: PERRL, EOM intact ENT: hearing intact, clear oral mucosa, dentition normal - Neck Neck: Present: supple, normal ROM - Respiratory Respiratory effort: normal Respiratory: bilateral: CTA - Cardiovascular Rhythm: regular Heart Sounds: Present: S1 & S2. Absent: gallop, rub - Extremities Extremities: no ischemia, No edema, Full ROM - Abdominal General gastrointestinal: soft, non-tender, non-distended, normal bowel sounds - Integumentary Integumentary: Present: clear, warm, dry - Neurologic Neurologic: CNII-XII intact, moves all extremities HEART Score - HEART Score Troponin: Troponin T < 0.010 ng/mL (0.00-0.029) 04/21/22 18:40 Results - Labs CBC & Chem 7: 04/21/22 18:40 04/21/22 18:40 Labs: Laboratory Last Values WBC 13.3 K/mm3 (4.5-11.0) H 04/21/22 18:40 RBC 4.08 M/mm3 (3.65-5.03) 04/21/22 18:40 Hgb 12.6 gm/dl (10.1-14.3) 04/21/22 18:40 Hct 38.5 % (30.3-42.9) 04/21/22 18:40 MCV 94 fl (79-97) 04/21/22 18:40 MCH 31 pg (28-32) 04/21/22 18:40 MCHC 33 % (30-34) 04/21/22 18:40 RDW 14.3 % (13.2-15.2) 04/21/22 18:40 Plt Count 198 K/mm3 (140-440) 04/21/22 18:40 Lymph % (Auto) 16.6 % (13.4-35.0) 04/21/22 18:40 [place] % (Auto) 8.4 % (0.0-7.3) H 04/21/22 18:40 Eos % (Auto) 1.5 % (0.0-4.3) 04/21/22 18:40 Baso % (Auto) 0.7 % (0.0-1.8) 04/21/22 18:40 Lymph # (Auto) 2.2 K/mm3 (1.2-5.4) 04/21/22 18:40 [place] # (Auto) 1.1 K/mm3 (0.0-0.8) H 04/21/22 18:40 Eos # (Auto) 0.2 K/mm3 (0.0-0.4) 04/21/22 18:40 Baso # (Auto) 0.1 K/mm3 (0.0-0.1) 04/21/22 18:40 Seg Neutrophils % 72.8 % (40.0-70.0) H 04/21/22 18:40 Seg Neutrophils # 9.6 K/mm3 (1.8-7.7) H 04/21/22 18:40 PT 14.1 Sec. (12.2-14.9) 04/22/22 04:37 INR 0.96 (0.87-1.13) 04/22/22 04:37 APTT 92.7 Sec. (24.2-36.6) H* 04/21/22 18:40 Thrombin Time 14.5 Sec. (15.1-19.6) L 04/21/22 18:40 Sodium 135 mmol/L (137-145) L 04/21/22 18:40 Potassium 3.5 mmol/L (3.6-5.0) L 04/21/22 18:40 Chloride 100.5 mmol/L (98-107) 04/21/22 18:40 Carbon Dioxide 23 mmol/L (22-30) 04/21/22 18:40 Anion Gap 15 mmol/L 04/21/22 18:40 BUN 6 mg/dL (7-17) L 04/21/22 18:40 Creatinine 0.8 mg/dL (0.6-1.2) 04/21/22 18:40 Estimated GFR > 60 ml/min 04/21/22 18:40 BUN/Creatinine Ratio 8 % 04/21/22 18:40 Glucose 85 mg/dL (65-100) 04/21/22 18:40 POC Glucose 104 mg/dL (70-105) 04/22/22 00:18 Calcium 8.8 mg/dL (8.4-10.2) 04/21/22 18:40 Total Bilirubin 0.80 mg/dL (0.1-1.2) 04/21/22 18:40 AST 12 units/L (5-40) 04/21/22 18:40 ALT 10 units/L (7-56) 04/21/22 18:40 Alkaline Phosphatase 36 units/L (35-129) 04/21/22 18:40 Total Creatine Kinase 37 units/L (30-135) 04/21/22 18:40 CK-MB (CK-2) < 1.0 ng/mL (0.0-4.0) 04/21/22 18:40 CK-MB (CK-2) Rel Index 2.7 (0-4) 04/21/22 18:40 Troponin T < 0.010 ng/mL (0.00-0.029) 04/21/22 18:40 Total Protein 7.4 g/dL (6.3-8.2) 04/21/22 18:40 Albumin 3.9 g/dL (3.9-5) 04/21/22 18:40 Albumin/Globulin Ratio 1.1 % 04/21/22 18:40 Urine Color Colorless (Yellow) 04/22/22 03:20 Urine Turbidity Slightly cloudy (Clear) 04/22/22 03:20 Urine pH 7.0 (5.0-7.0) 04/22/22 03:20 Ur Specific [place] 1.010 (1.003-1.030) 04/22/22 03:20 Urine Protein 30 mg/dl mg/dL (Negative) 04/22/22 03:20 Urine Glucose (UA) Negative mg/dL (Negative) 04/22/22 03:20 Urine Ketones Negative mg/dL (Negative) 04/22/22 03:20 Urine Blood Moderate (Negative) A 04/22/22 03:20 Urine Nitrite Negative (Negative) 04/22/22 03:20 Urine Bilirubin Negative (Negative) 04/22/22 03:20 Urine Urobilinogen 2.0 mg/dL (<2.0) 04/22/22 03:20 Ur Leukocyte Esterase Large (Negative) 04/22/22 03:20 Urine WBC (Auto) > 182.0 /HPF (0.0-6.0) H 04/22/22 03:20 Urine RBC (Auto) 11.0 /HPF (0.0-6.0) 04/22/22 03:20 U Epithel Cells (Auto) 1.0 /HPF (0-13.0) 04/22/22 03:20 Urine Bacteria (Auto) 1+ /HPF (Negative) 04/22/22 03:20 Urine WBC Clumps 2+ /HPF 04/22/22 03:20 Urine Mucus Few /HPF 04/22/22 03:20 Urine Yeast (Budding) 1+ /HPF 04/22/22 03:20 Devi/IV: Voiding Method Bedside Commode Active Medications - Current Medications Current Medications: Generic Name Dose Route Start Last Admin Trade Name Freq PRN Reason Stop Dose Admin Acetaminophen 650 mg 04/21/22 20:02 04/23/22 07:54 Acetaminophen 325 Mg Tab PO 650 mg Q4H PRN Administration Pain, Mild (1-3) Albuterol 2.5 mg 04/21/22 20:02 Albuterol 2.5 Mg/3 Ml Nebu IH Q3HRT PRN Shortness Of Breath Aspirin 325 mg 04/22/22 10:00 04/22/22 10:52 Aspirin 325 Mg Tab PO 325 mg QDAY ADE Administration Atorvastatin Calcium 40 mg 04/21/22 22:00 04/22/22 21:00 Atorvastatin 40 Mg Tab PO 40 mg QHS ADE Administration Bisacodyl 10 mg 04/21/22 20:02 Bisacodyl 10 Mg Rect Supp RI QDAY PRN Constipation Hydromorphone HCl 0.5 mg 04/21/22 20:02 Hydromorphone 0.5 Mg/0.5 Ml Inj IV Q23H PRN Pain , Severe (7-10) Magnesium Hydroxide 30 ml 04/21/22 20:02 Magnesium Hydroxide (Mom) Oral Liqd Udc PO Q4H PRN Constipation Metoclopramide HCl 10 mg 04/21/22 20:02 Metoclopramide 10 Mg Tab PO Q6H PRN Nausea And Vomiting Ondansetron HCl 4 mg 04/21/22 20:02 Ondansetron 4 Mg/2 Ml Inj IV Q8H PRN Nausea And Vomiting Oxycodone/Acetaminophen 1 tab 04/21/22 20:02 Oxycodone /Acetaminophen 5-325mg Tab PO Q16H PRN Pain, Moderate (4-6) Promethazine HCl 25 mg 04/21/22 20:02 Promethazine 25 Mg Rect Supp RI Q6H PRN Nausea And Vomiting Sodium Chloride 10 ml 04/21/22 20:02 Sodium Chloride 0.9% 10 Ml Flush Syringe IV PRN PRN LINE FLUSH
[2022-04-23] MEDS: ASPIRIN 325 MG TAB PO SCH (10:41)
--- NOTE | 2022-04-24 08:47 | Progress Note ---
Assessment and Plan Assessment and plan: 36 YO Female with Obesity, Autism, HTN, CVA, HLD, Hypothyroidism, GERD presents to ED for evaluation of sudden onset of weakness on her left side. Patient also reported difficulty with balance. EMS was notified and upon arrival the patient was found to be in distress with a new focal neurologic deficit. A code stroke was called and the patient was transported to [facility] for further care and evaluation of the aforementioned symptoms. The patient was seen and evaluated in the emergency department. All lab and imaging studies reviewed. Patient found to have a focal neurologic deficit with clinical symptoms consistent with acute CVA. Acute CVA Left hemiparesis Sepsis. Present on admission. Patient meets criteria given the tachycardia, leukocytosis and diagnosis of UTI. UTI Hyponatremia Supratherapeutic INR 04/22/2022. Follow-up echocardiogram and order MRI brain. PT/OT/ST evaluations pending. Continue aspirin and Lipitor for now. Neurology consultation when available. 04/23/2022. Echocardiogram reveals no PFO and left ventricular systolic function normal with EF of 60%. Mild concentric left ventricular hypertrophy. Carotid Doppler negative. Await MRI of brain and PT/OT/ST evaluations. Continue aspirin and Lipitor. Neurology consultation in a.m. 04/24/2022. We will start Rocephin 1 g IV every 24 hours for sepsis/UTI. Follow- up blood and urine cultures. Echocardiogram reveals no PFO and left ventricular systolic function normal with EF of 60%. Mild concentric left ventricular hypertrophy. Carotid Doppler negative. Await MRI of brain and PT/OT/ST evaluations. Continue aspirin and Lipitor. Neurology consultation History Interval history: No new issues overnight Hospitalist Physical - Constitutional Vitals: Temp Pulse Resp BP Pulse Ox 98.5 F 65 18 103/64 0 L 04/24/22 06:03 04/24/22 06:03 04/24/22 06:03 04/24/22 06:03 04/24/22 08:43 General appearance: Present: no acute distress - EENT Eyes: Present: PERRL, EOM intact ENT: hearing intact, clear oral mucosa, dentition normal - Neck Neck: Present: supple, normal ROM - Respiratory Respiratory effort: normal Respiratory: bilateral: CTA - Cardiovascular Rhythm: regular Heart Sounds: Present: S1 & S2. Absent: gallop, rub - Extremities Extremities: no ischemia, No edema, Full ROM - Abdominal General gastrointestinal: soft, non-tender, non-distended, normal bowel sounds - Integumentary Integumentary: Present: clear, warm, dry - Neurologic Neurologic: CNII-XII intact, moves all extremities HEART Score - HEART Score Troponin: Troponin T < 0.010 ng/mL (0.00-0.029) 04/21/22 18:40 Results - Labs CBC & Chem 7: 04/21/22 18:40 04/21/22 18:40 Labs: Laboratory Last Values WBC 13.3 K/mm3 (4.5-11.0) H 04/21/22 18:40 RBC 4.08 M/mm3 (3.65-5.03) 04/21/22 18:40 Hgb 12.6 gm/dl (10.1-14.3) 04/21/22 18:40 Hct 38.5 % (30.3-42.9) 04/21/22 18:40 MCV 94 fl (79-97) 04/21/22 18:40 MCH 31 pg (28-32) 04/21/22 18:40 MCHC 33 % (30-34) 04/21/22 18:40 RDW 14.3 % (13.2-15.2) 04/21/22 18:40 Plt Count 198 K/mm3 (140-440) 04/21/22 18:40 Lymph % (Auto) 16.6 % (13.4-35.0) 04/21/22 18:40 [place] % (Auto) 8.4 % (0.0-7.3) H 04/21/22 18:40 Eos % (Auto) 1.5 % (0.0-4.3) 04/21/22 18:40 Baso % (Auto) 0.7 % (0.0-1.8) 04/21/22 18:40 Lymph # (Auto) 2.2 K/mm3 (1.2-5.4) 04/21/22 18:40 [place] # (Auto) 1.1 K/mm3 (0.0-0.8) H 04/21/22 18:40 Eos # (Auto) 0.2 K/mm3 (0.0-0.4) 04/21/22 18:40 Baso # (Auto) 0.1 K/mm3 (0.0-0.1) 04/21/22 18:40 Seg Neutrophils % 72.8 % (40.0-70.0) H 04/21/22 18:40 Seg Neutrophils # 9.6 K/mm3 (1.8-7.7) H 04/21/22 18:40 PT 14.1 Sec. (12.2-14.9) 04/22/22 04:37 INR 0.96 (0.87-1.13) 04/22/22 04:37 APTT 92.7 Sec. (24.2-36.6) H* 04/21/22 18:40 Thrombin Time 14.5 Sec. (15.1-19.6) L 04/21/22 18:40 Sodium 135 mmol/L (137-145) L 04/21/22 18:40 Potassium 3.5 mmol/L (3.6-5.0) L 04/21/22 18:40 Chloride 100.5 mmol/L (98-107) 04/21/22 18:40 Carbon Dioxide 23 mmol/L (22-30) 04/21/22 18:40 Anion Gap 15 mmol/L 04/21/22 18:40 BUN 6 mg/dL (7-17) L 04/21/22 18:40 Creatinine 0.8 mg/dL (0.6-1.2) 04/21/22 18:40 Estimated GFR > 60 ml/min 04/21/22 18:40 BUN/Creatinine Ratio 8 % 04/21/22 18:40 Glucose 85 mg/dL (65-100) 04/21/22 18:40 POC Glucose 104 mg/dL (70-105) 04/22/22 00:18 Calcium 8.8 mg/dL (8.4-10.2) 04/21/22 18:40 Total Bilirubin 0.80 mg/dL (0.1-1.2) 04/21/22 18:40 AST 12 units/L (5-40) 04/21/22 18:40 ALT 10 units/L (7-56) 04/21/22 18:40 Alkaline Phosphatase 36 units/L (35-129) 04/21/22 18:40 Total Creatine Kinase 37 units/L (30-135) 04/21/22 18:40 CK-MB (CK-2) < 1.0 ng/mL (0.0-4.0) 04/21/22 18:40 CK-MB (CK-2) Rel Index 2.7 (0-4) 04/21/22 18:40 Troponin T < 0.010 ng/mL (0.00-0.029) 04/21/22 18:40 Total Protein 7.4 g/dL (6.3-8.2) 04/21/22 18:40 Albumin 3.9 g/dL (3.9-5) 04/21/22 18:40 Albumin/Globulin Ratio 1.1 % 04/21/22 18:40 Urine Color Colorless (Yellow) 04/22/22 03:20 Urine Turbidity Slightly cloudy (Clear) 04/22/22 03:20 Urine pH 7.0 (5.0-7.0) 04/22/22 03:20 Ur Specific [place] 1.010 (1.003-1.030) 04/22/22 03:20 Urine Protein 30 mg/dl mg/dL (Negative) 04/22/22 03:20 Urine Glucose (UA) Negative mg/dL (Negative) 04/22/22 03:20 Urine Ketones Negative mg/dL (Negative) 04/22/22 03:20 Urine Blood Moderate (Negative) A 04/22/22 03:20 Urine Nitrite Negative (Negative) 04/22/22 03:20 Urine Bilirubin Negative (Negative) 04/22/22 03:20 Urine Urobilinogen 2.0 mg/dL (<2.0) 04/22/22 03:20 Ur Leukocyte Esterase Large (Negative) 04/22/22 03:20 Urine WBC (Auto) > 182.0 /HPF (0.0-6.0) H 04/22/22 03:20 Urine RBC (Auto) 11.0 /HPF (0.0-6.0) 04/22/22 03:20 U Epithel Cells (Auto) 1.0 /HPF (0-13.0) 04/22/22 03:20 Urine Bacteria (Auto) 1+ /HPF (Negative) 04/22/22 03:20 Urine WBC Clumps 2+ /HPF 04/22/22 03:20 Urine Mucus Few /HPF 04/22/22 03:20 Urine Yeast (Budding) 1+ /HPF 04/22/22 03:20 Devi/IV: Voiding Method External Female Catheter Active Medications - Current Medications Current Medications: Generic Name Dose Route Start Last Admin Trade Name Freq PRN Reason Stop Dose Admin Acetaminophen 650 mg 04/21/22 20:02 04/23/22 07:54 Acetaminophen 325 Mg Tab PO 650 mg Q4H PRN Administration Pain, Mild (1-3) Albuterol 2.5 mg 04/21/22 20:02 Albuterol 2.5 Mg/3 Ml Nebu IH Q3HRT PRN Shortness Of Breath Aspirin 325 mg 04/22/22 10:00 04/23/22 10:41 Aspirin 325 Mg Tab PO 325 mg QDAY ADE Administration Atorvastatin Calcium 40 mg 04/21/22 22:00 04/23/22 21:47 Atorvastatin 40 Mg Tab PO 40 mg QHS ADE Administration Bisacodyl 10 mg 04/21/22 20:02 Bisacodyl 10 Mg Rect Supp [place] QDAY PRN Constipation Hydromorphone HCl 0.5 mg 04/21/22 20:02 Hydromorphone 0.5 Mg/0.5 Ml Inj IV Q23H PRN Pain , Severe (7-10) Ceftriaxone Sodium 1 gm in 50 mls @ 100 mls/hr 04/24/22 08:00 Rocephin/Ns 1 Gm/50 Ml IV Q24H ADE Protocol Magnesium Hydroxide 30 ml 04/21/22 20:02 Magnesium Hydroxide (Mom) Oral Liqd Udc PO Q4H PRN Constipation Metoclopramide HCl 10 mg 04/21/22 20:02 Metoclopramide 10 Mg Tab PO Q6H PRN Nausea And Vomiting Ondansetron HCl 4 mg 04/21/22 20:02 Ondansetron 4 Mg/2 Ml Inj IV Q8H PRN Nausea And Vomiting Oxycodone/Acetaminophen 1 tab 04/21/22 20:02 Oxycodone /Acetaminophen 5-325mg Tab PO Q16H PRN Pain, Moderate (4-6) Promethazine HCl 25 mg 04/21/22 20:02 Promethazine 25 Mg Rect Supp NC Q6H PRN Nausea And Vomiting Sodium Chloride 10 ml 04/21/22 20:02 Sodium Chloride 0.9% 10 Ml Flush Syringe IV PRN PRN LINE FLUSH
--- NOTE | 2022-04-24 09:16 | Magnetic Resonance Report ---
MR brain wo con INDICATION / CLINICAL INFORMATION: 36 years Female; cva, left sided weakness and numbness, difficulty walking. TECHNIQUE: Multiplanar, multisequence MR images of the brain were obtained. COMPARISON: None available. FINDINGS: BRAIN / INTRACRANIAL CONTENTS: The brain parenchyma demonstrate appropriate signal characteristics. T he ventricular system is within normal limits in size and configuration. No extra-axial fluid collect ions or significant mass effect is identified. The diffusion imaging is unremarkable without evidence of recent infarction. CRANIOCERVICAL JUNCTION: No significant abnormality. VASCULAR FLOW-VOIDS: No significant abnormality. ORBITS: No significant abnormality of visualized orbits. SINUSES / MASTOIDS: No significant abnormality in the visualized paranasal sinuses or mastoid air giovanny ls. ADDITIONAL FINDINGS: None. IMPRESSION: 1. The MRI the brain is unremarkable without evidence of recent infarction. Signer Name: Ryan Castañeda MD Signed: 04/24/2022 9:12 AM Workstation Name: [id number]
[2022-04-24] MEDS: cefTRIAXone/NS 1 GM/50 ML 1 GM/50 ML BAG IV SCH (09:24)
[2022-04-24] MEDS: ASPIRIN 325 MG TAB PO SCH (09:25)
--- NOTE | 2022-04-24 10:10 | Electrocardiograph Report ---
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
[2022-04-24 10:25] LABS: Blood Urea Nitrogen 6 mg/dL (7-17); Hemolysis Index 0
[2022-04-24 10:35] LABS: Basophils # (Auto) 0.1 K/mm3 (0.0-0.1); Basophils % (Auto) 0.8 % (0.0-1.8); Eosinophils # (Auto) 0.4 K/mm3 (0.0-0.4); Eosinophils % (Auto) 6.4 % (0.0-4.3); Hematocrit 37.3 % (30.3-42.9); Hemoglobin 12.9 gm/dl (10.1-14.3); Lymphocytes # (Auto) 1.6 K/mm3 (1.2-5.4); Lymphocytes % (Auto) 26.6 % (13.4-35.0); Mean Corpuscular HGB Conc 35 % (30-34); Mean Corpuscular Volume 93 fl (79-97); Monocytes # (Auto) 0.7 K/mm3 (0.0-0.8); Monocytes % (Auto) 11.8 % (0.0-7.3); Platelet Count 232 K/mm3 (140-440)
[2022-04-24 10:37] LABS: BUN/Creatinine Ratio 9
--- NOTE | 2022-04-24 16:09 | Consultation ---
History of Present Illness Consult date: 04/24/22 Reason for Consult: Left Arm Numbness History of present illness: Consult for Left Arm Numbness ,reports Headaches .reports left arm and leg weak ness , some improvement reported. Past History Past Medical History: hypertension, hyperlipidemia, stroke, other (See HPI) Past Surgical History: No surgical history, Other (Reviewed) Social history: single, lives with family. denies: smoking, alcohol abuse, prescription drug abuse Family history: diabetes, hypertension Medications and Allergies Allergies Allergy/AdvReac Type Severity Reaction Status Date / Time Penicillins Allergy Unknown Verified 04/21/22 18:27 Home Medications Medication Instructions Recorded Confirmed Last Taken Type Acetaminophen/Codeine [Tylenol 1 tab PO Q4HR PRN #10 tablet 12/03/21 Unknown Rx /Codeine # 3 tab] AtorvaSTATin [Lipitor] 20 DAILY 04/23/22 04/21/22 07:00 History Famotidine [Pepcid] 20 mg PO BID 04/23/22 04/23/22 04/21/22 07:00 History Levothyroxine [Synthroid] 0.088 mg DAILY 04/23/22 04/23/22 04/21/22 07:00 History Norgestimate-Ethinyl Estradiol 1 each PO 04/23/22 04/21/22 07:00 History [Sprintec 28 Day Tablet] Valacyclovir HCl [Valacyclovir] 1,000 mg PO DAILY 04/23/22 04/23/22 04/21/22 07:00 History metroNIDAZOLE [Flagyl] 500 mg PO BID 04/23/22 04/23/22 04/21/22 07:00 History Active Meds: Active Medications Acetaminophen (Acetaminophen 325 Mg Tab) 650 mg PO Q4H PRN PRN Reason: Pain, Mild (1-3) Last Admin: 04/23/22 07:54 Dose: 650 mg Albuterol (Albuterol 2.5 Mg/3 Ml Nebu) 2.5 mg IH Q3HRT PRN PRN Reason: Shortness Of Breath Aspirin (Aspirin 325 Mg Tab) 325 mg PO QDAY [facility] Last Admin: 04/24/22 09:25 Dose: 325 mg Atorvastatin Calcium (Atorvastatin 40 Mg Tab) 40 mg PO QHS ADE Last Admin: 04/23/22 21:47 Dose: 40 mg Bisacodyl (Bisacodyl 10 Mg Rect Supp) 10 mg [place] QDAY PRN PRN Reason: Constipation Hydromorphone HCl (Hydromorphone 0.5 Mg/0.5 Ml Inj) 0.5 mg IV Q23H PRN PRN Reason: Pain , Severe (7-10) Ceftriaxone Sodium (Rocephin/Ns 1 Gm/50 Ml) 1 gm in 50 mls @ 100 mls/hr IV Q24H [facility]; Protocol Last Admin: 04/24/22 09:24 Dose: 100 mls/hr Magnesium Hydroxide (Magnesium Hydroxide (Mom) Oral Liqd Udc) 30 ml PO Q4H PRN PRN Reason: Constipation Metoclopramide HCl (Metoclopramide 10 Mg Tab) 10 mg PO Q6H PRN PRN Reason: Nausea And Vomiting Ondansetron HCl (Ondansetron 4 Mg/2 Ml Inj) 4 mg IV Q8H PRN PRN Reason: Nausea And Vomiting Oxycodone/Acetaminophen (Oxycodone /Acetaminophen 5-325mg Tab) 1 tab PO Q16H PRN PRN Reason: Pain, Moderate (4-6) Promethazine HCl (Promethazine 25 Mg Rect Supp) 25 mg [place] Q6H PRN PRN Reason: Nausea And Vomiting Sodium Chloride (Sodium Chloride 0.9% 10 Ml Flush Syringe) 10 ml IV PRN PRN PRN Reason: LINE FLUSH Physical Examination - Vital Signs Vital Signs: Vital Signs Temp Pulse Resp BP Pulse Ox 97.9 F 93 H 18 141/99 100 04/21/22 18:03 04/21/22 18:03 04/21/22 18:03 04/21/22 18:03 04/21/22 18:03 - Physical Exam Narrative exam: The patient is alert , weakness in the left upper and lower extremity . Right UE and LE 5/5. Results - Laboratory Findings CBC and BMP: 04/24/22 09:41 04/24/22 09:41 Abnormal Lab Findings: Abnormal Labs 04/21/22 04/21/22 04/21/22 18:40 18:40 18:40 WBC 13.3 H MCHC [place] % (Auto) 8.4 H Eos % (Auto) [place] # (Auto) 1.1 H Seg Neutrophils % 72.8 H Seg Neutrophils # 9.6 H PT 78.7 H INR 7.81 H* APTT 92.7 H* Thrombin Time 14.5 L Sodium 135 L Potassium 3.5 L BUN 6 L Glucose Lactic Acid Urine Blood Urine WBC (Auto) 04/22/22 04/24/22 04/24/22 03:20 09:41 09:41 WBC MCHC 35 H [place] % (Auto) 11.8 H Eos % (Auto) 6.4 H [place] # (Auto) Seg Neutrophils % Seg Neutrophils # PT INR APTT Thrombin Time Sodium Potassium BUN 6 L Glucose 104 H Lactic Acid Urine Blood Moderate A Urine WBC (Auto) > 182.0 H 04/24/22 09:41 WBC MCHC [place] % (Auto) Eos % (Auto) [place] # (Auto) Seg Neutrophils % Seg Neutrophils # PT INR APTT Thrombin Time Sodium Potassium BUN Glucose Lactic Acid 2.30 H* Urine Blood Urine WBC (Auto) Assessment and Plan 1. Left Sided Weakness ( rule out Demyelinating Disease ) Reviewed MRI Brain - normal will order MRI Cervical Spine ( rule out Demyelinating Disease ) Needs PT and OT evaluation. Dr. Alatorre
[2022-04-24] MEDS: oxyCODONE /ACETAMINOPHEN 5-325MG TAB PO PRN (21:58)
[2022-04-25 05:55] LABS: Hemoglobin 12.2 gm/dl (10.1-14.3); Mean Corpuscular HGB Conc 34 % (30-34); Mean Corpuscular Volume 94 fl (79-97); Platelet Count 249 K/mm3 (140-440); Red Blood Count 3.82 M/mm3 (3.65-5.03); Red Cell Distribution Width 13.9 % (13.2-15.2)
[2022-04-25 06:13] LABS: Blood Urea Nitrogen 10 mg/dL (7-17); Calcium 8.7 mg/dL (8.4-10.2); Hemolysis Index 1
[2022-04-25 06:15] LABS: BUN/Creatinine Ratio 14
[2022-04-25 07:17] LABS: Band Neutrophils # (Manual) 0.1 K/mm3; Basophils % (Manual) 0 % (0.0-1.8); Platelet Estimate Consistent w Auto; RBC Morphology Normal; Total Cells Counted 100
--- NOTE | 2022-04-25 09:41 | Magnetic Resonance Report ---
MR cervical spine wo con INDICATION / CLINICAL INFORMATION: weakness LT ARM. TECHNIQUE: Multisequence, multiplanar images of the cervical spine were obtained. COMPARISON: None available. FINDINGS: ALIGNMENT: Normal alignment. VERTEBRAE:No aggressive osseous marrow signal. Vertebral body heights are preserved. SPINAL CORD: No abnormal cord signal [id number] ANALYSIS: C2-C3: No significant spinal canal stenosis. No significant foraminal narrowing. C3-C4: No significant spinal canal stenosis. No significant foraminal narrowing. C4-C5: No significant spinal canal stenosis. No significant foraminal narrowing. C5-C6: Broad-based disc protrusion causing mild canal stenosis. C6-C7: No significant spinal canal stenosis. No significant foraminal narrowing. C7-T1: No significant spinal canal stenosis. No significant foraminal narrowing. PARASPINAL SOFT TISSUES: No significant abnormality. ADDITIONAL FINDINGS: None. IMPRESSION: 1. Broad-based disc protrusion at C5-6 causing mild spinal canal stenosis. No significant spinal cord or nerve root impingement seen. CERVICAL GRADING DEFINITIONS FOR THE PURPOSES OF THIS REPORT: Cervical canal stenosis: No stenosis: No significant attenuation of the CSF spaces Mild stenosis: Attenuation or effacement of the ventral CSF Moderate stenosis: Effacement of both the ventral and dorsal CSF, cord flattening, but so me CSF remaining Severe stenosis: Effacement of all CSF, cord compression Cervical neural foraminal stenosis (Kamila et al. [place] J Radiol. 2015 Jul-Aug;16(6):1294-302): No stenosis: No attenuation of the fat in the foramen Mild stenosis: Narrowest point of the foramen is larger than the extraforaminal nerve Moderate stenosis: Narrowest point of the foramen remains greater than 50% of the caliber of the extraforaminal nerve Severe stenosis: Narrowest point of the foramen is less than 50% of the caliber of th e extraforaminal nerve Signer Name: Faraz Gaitan MD Signed: 04/25/2022 9:36 AM Workstation Name: [employer]
--- NOTE | 2022-04-25 09:49 | Progress Note ---
Assessment and Plan Assessment and plan: 36 YO Female with Obesity, Autism, HTN, CVA, HLD, Hypothyroidism, GERD presents to ED for evaluation of sudden onset of weakness on her left side. Patient also reported difficulty with balance. EMS was notified and upon arrival the patient was found to be in distress with a new focal neurologic deficit. A code stroke was called and the patient was transported to [facility] for further care and evaluation of the aforementioned symptoms. The patient was seen and evaluated in the emergency department. All lab and imaging studies reviewed. Patient found to have a focal neurologic deficit with clinical symptoms consistent with acute CVA. Acute CVA CVA work-up is negative, no evidence of acute CVA Left hemiparesis/improved Sepsis. Due to UTI present on admission. Patient meets criteria given the tachycardia, leukocytosis and diagnosis of UTI. Urinary tract infection present on admission Hyponatremia/resolved 04/22/2022. Follow-up echocardiogram and order MRI brain. PT/OT/ST evaluations pending. Continue aspirin and Lipitor for now. Neurology consultation when available. 04/23/2022. Echocardiogram reveals no PFO and left ventricular systolic function normal with EF of 60%. Mild concentric left ventricular hypertrophy. Carotid Doppler negative. Await MRI of brain and PT/OT/ST evaluations. Continue aspirin and Lipitor. Neurology consultation in a.m. 04/24/2022. We will start Rocephin 1 g IV every 24 hours for sepsis/UTI. Follow- up blood and urine cultures. Echocardiogram reveals no PFO and left ventricular systolic function normal with EF of 60%. Mild concentric left ventricular hypertrophy. Carotid Doppler negative. Await MRI of brain and PT/OT/ST evaluations. Continue aspirin and Lipitor. Neurology consultation 04/25; DC possible discharge tomorrow, follow PT evaluation History Interval history: I have seen and examined the patient at the bedside Patient's chart and medications reviewed No new events reported by the nursing Patient had MRI cervical spine this morning Findings noted and reviewed Patient still complains of shoulder and left arm pain vital signs noted Hospitalist Physical - Constitutional Vitals: Temp Pulse Resp BP Pulse Ox 97.7 F 70 18 100/50 99 04/24/22 21:59 04/24/22 21:59 04/25/22 00:00 04/24/22 21:59 04/25/22 00:00 General appearance: Present: no acute distress, well-nourished - EENT Eyes: Present: PERRL, EOM intact - Neck Neck: Present: supple, normal ROM - Respiratory Respiratory effort: normal Respiratory: bilateral: diminished, negative: rales, rhonchi, wheezing - Cardiovascular Rhythm: regular Heart Sounds: Present: S1 & S2 - Extremities Extremities: no ischemia, No edema - Abdominal General gastrointestinal: soft, non-tender, non-distended, normal bowel sounds - Integumentary Integumentary: Present: clear, warm - Psychiatric Psychiatric: appropriate mood/affect, cooperative - Neurologic Neurologic: moves all extremities HEART Score - HEART Score Troponin: Troponin T < 0.010 ng/mL (0.00-0.029) 04/21/22 18:40 Results - Labs CBC & Chem 7: 04/25/22 04:57 04/25/22 04:57 Labs: Laboratory Last Values WBC 6.3 K/mm3 (4.5-11.0) 04/25/22 04:57 RBC 3.82 M/mm3 (3.65-5.03) 04/25/22 04:57 Hgb 12.2 gm/dl (10.1-14.3) 04/25/22 04:57 Hct 36.0 % (30.3-42.9) 04/25/22 04:57 MCV 94 fl (79-97) 04/25/22 04:57 MCH 32 pg (28-32) 04/25/22 04:57 MCHC 34 % (30-34) 04/25/22 04:57 RDW 13.9 % (13.2-15.2) 04/25/22 04:57 Plt Count 249 K/mm3 (140-440) 04/25/22 04:57 Lymph % (Auto) 26.6 % (13.4-35.0) 04/24/22 09:41 [place] % (Auto) 11.8 % (0.0-7.3) H 04/24/22 09:41 Eos % (Auto) 6.4 % (0.0-4.3) H 04/24/22 09:41 Baso % (Auto) 0.8 % (0.0-1.8) 04/24/22 09:41 Lymph # (Auto) 1.6 K/mm3 (1.2-5.4) 04/24/22 09:41 [place] # (Auto) 0.7 K/mm3 (0.0-0.8) 04/24/22 09:41 Eos # (Auto) 0.4 K/mm3 (0.0-0.4) 04/24/22 09:41 Baso # (Auto) 0.1 K/mm3 (0.0-0.1) 04/24/22 09:41 Add Manual Diff Complete 04/25/22 04:57 Total Counted 100 04/25/22 04:57 Seg Neutrophils % [employer] 04/25/22 04:57 Seg Neuts % (Manual) 44.0 % (40.0-70.0) 04/25/22 04:57 Band Neutrophils % 1.0 % 04/25/22 04:57 Lymphocytes % (Manual) 42.0 % (13.4-35.0) H 04/25/22 04:57 Reactive Lymphs % (Man) 0 % 04/25/22 04:57 Monocytes % (Manual) 5.0 % (0.0-7.3) 04/25/22 04:57 Eosinophils % (Manual) 8.0 % (0.0-4.3) H 04/25/22 04:57 Basophils % (Manual) 0 % (0.0-1.8) 04/25/22 04:57 Metamyelocytes % 0 % 04/25/22 04:57 Myelocytes % 0 % 04/25/22 04:57 Promyelocytes % 0 % 04/25/22 04:57 Blast Cells % 0 % 04/25/22 04:57 Nucleated RBC % Not Reportable 04/25/22 04:57 Seg Neutrophils # 3.3 K/mm3 (1.8-7.7) 04/24/22 09:41 Seg Neutrophils # Man 2.8 K/mm3 (1.8-7.7) 04/25/22 04:57 Band Neutrophils # 0.1 K/mm3 04/25/22 04:57 Lymphocytes # (Manual) 2.6 K/mm3 (1.2-5.4) 04/25/22 04:57 Abs React Lymphs (Man) 0.0 K/mm3 04/25/22 04:57 Monocytes # (Manual) 0.3 K/mm3 (0.0-0.8) 04/25/22 04:57 Eosinophils # (Manual) 0.5 K/mm3 (0.0-0.4) H 04/25/22 04:57 Basophils # (Manual) 0.0 K/mm3 (0.0-0.1) 04/25/22 04:57 Metamyelocytes # 0.0 K/mm3 04/25/22 04:57 Myelocytes # 0.0 K/mm3 04/25/22 04:57 Promyelocytes # 0.0 K/mm3 04/25/22 04:57 Blast Cells # 0.0 K/mm3 04/25/22 04:57 WBC Morphology Not Reportable 04/25/22 04:57 Hypersegmented Neuts Not Reportable 04/25/22 04:57 Hyposegmented Neuts Not Reportable 04/25/22 04:57 Hypogranular Neuts Not Reportable 04/25/22 04:57 Smudge Cells Not Reportable 04/25/22 04:57 Toxic Granulation Not Reportable 04/25/22 04:57 Toxic Vacuolation Not Reportable 04/25/22 04:57 Dohle Bodies Not Reportable 04/25/22 04:57 Pelger-Huet Anomaly Not Reportable 04/25/22 04:57 Jody Rods Not Reportable 04/25/22 04:57 Platelet Estimate Consistent w auto 04/25/22 04:57 Clumped Platelets Not Reportable 04/25/22 04:57 Plt Clumps, EDTA Not Reportable 04/25/22 04:57 Large Platelets Not Reportable 04/25/22 04:57 Giant Platelets Not Reportable 04/25/22 04:57 Platelet Satelliting Not Reportable 04/25/22 04:57 Plt Morphology Comment Not Reportable 04/25/22 04:57 RBC Morphology Normal 04/25/22 04:57 Dimorphic RBCs Not Reportable 04/25/22 04:57 Polychromasia Not Reportable 04/25/22 04:57 Hypochromasia Not Reportable 04/25/22 04:57 Poikilocytosis Not Reportable 04/25/22 04:57 Anisocytosis Not Reportable 04/25/22 04:57 Microcytosis Not Reportable 04/25/22 04:57 Macrocytosis Not Reportable 04/25/22 04:57 Spherocytes Not Reportable 04/25/22 04:57 Pappenheimer Bodies Not Reportable 04/25/22 04:57 Sickle Cells Not Reportable 04/25/22 04:57 Target Cells Not Reportable 04/25/22 04:57 Tear Drop Cells Not Reportable 04/25/22 04:57 Ovalocytes Not Reportable 04/25/22 04:57 Helmet Cells Not Reportable 04/25/22 04:57 Cheng-Concrete Bodies Not Reportable 04/25/22 04:57 [place] Rings Not Reportable 04/25/22 04:57 [place] Cells Not Reportable 04/25/22 04:57 Bite Cells Not Reportable 04/25/22 04:57 Crenated Cell Not Reportable 04/25/22 04:57 Elliptocytes Not Reportable 04/25/22 04:57 Acanthocytes (Spur) Not Reportable 04/25/22 04:57 Rouleaux Not Reportable 04/25/22 04:57 Hemoglobin C Crystals Not Reportable 04/25/22 04:57 Schistocytes Not Reportable 04/25/22 04:57 Malaria parasites Not Reportable 04/25/22 04:57 [place] Bodies Not Reportable 04/25/22 04:57 Hem Pathologist Commnt No 04/25/22 04:57 PT 14.1 Sec. (12.2-14.9) 04/22/22 04:37 INR 0.96 (0.87-1.13) 04/22/22 04:37 APTT 92.7 Sec. (24.2-36.6) H* 04/21/22 18:40 Thrombin Time 14.5 Sec. (15.1-19.6) L 04/21/22 18:40 Sodium 138 mmol/L (137-145) 04/25/22 04:57 Potassium 4.3 mmol/L (3.6-5.0) 04/25/22 04:57 Chloride 103.8 mmol/L (98-107) 04/25/22 04:57 Carbon Dioxide 23 mmol/L (22-30) 04/25/22 04:57 Anion Gap 16 mmol/L 04/25/22 04:57 BUN 10 mg/dL (7-17) 04/25/22 04:57 Creatinine 0.7 mg/dL (0.6-1.2) 04/25/22 04:57 Estimated GFR > 60 ml/min 04/25/22 04:57 BUN/Creatinine Ratio 14 % 04/25/22 04:57 Glucose 80 mg/dL (65-100) 04/25/22 04:57 POC Glucose 104 mg/dL (70-105) 04/22/22 00:18 Lactic Acid 0.80 mmol/L (0.7-2.0) 04/24/22 23:38 Calcium 8.7 mg/dL (8.4-10.2) 04/25/22 04:57 Total Bilirubin 0.80 mg/dL (0.1-1.2) 04/21/22 18:40 AST 12 units/L (5-40) 04/21/22 18:40 ALT 10 units/L (7-56) 04/21/22 18:40 Alkaline Phosphatase 36 units/L (35-129) 04/21/22 18:40 Total Creatine Kinase 37 units/L (30-135) 04/21/22 18:40 CK-MB (CK-2) < 1.0 ng/mL (0.0-4.0) 04/21/22 18:40 CK-MB (CK-2) Rel Index 2.7 (0-4) 04/21/22 18:40 Troponin T < 0.010 ng/mL (0.00-0.029) 04/21/22 18:40 Total Protein 7.4 g/dL (6.3-8.2) 04/21/22 18:40 Albumin 3.9 g/dL (3.9-5) 04/21/22 18:40 Albumin/Globulin Ratio 1.1 % 04/21/22 18:40 Urine Color Colorless (Yellow) 04/22/22 03:20 Urine Turbidity Slightly cloudy (Clear) 04/22/22 03:20 Urine pH 7.0 (5.0-7.0) 04/22/22 03:20 Ur Specific [place] 1.010 (1.003-1.030) 04/22/22 03:20 Urine Protein 30 mg/dl mg/dL (Negative) 04/22/22 03:20 Urine Glucose (UA) Negative mg/dL (Negative) 04/22/22 03:20 Urine Ketones Negative mg/dL (Negative) 04/22/22 03:20 Urine Blood Moderate (Negative) A 04/22/22 03:20 Urine Nitrite Negative (Negative) 04/22/22 03:20 Urine Bilirubin Negative (Negative) 04/22/22 03:20 Urine Urobilinogen 2.0 mg/dL (<2.0) 04/22/22 03:20 Ur Leukocyte Esterase Large (Negative) 04/22/22 03:20 Urine WBC (Auto) > 182.0 /HPF (0.0-6.0) H 04/22/22 03:20 Urine RBC (Auto) 11.0 /HPF (0.0-6.0) 04/22/22 03:20 U Epithel Cells (Auto) 1.0 /HPF (0-13.0) 04/22/22 03:20 Urine Bacteria (Auto) 1+ /HPF (Negative) 04/22/22 03:20 Urine WBC Clumps 2+ /HPF 04/22/22 03:20 Urine Mucus Few /HPF 04/22/22 03:20 Urine Yeast (Budding) 1+ /HPF 04/22/22 03:20 Microbiology: Microbiology 04/24/22 09:41 Peripheral/Venous Blood Culture - Preliminary Culture in Progress 04/24/22 09:41 Peripheral/Venous Blood Culture - Preliminary Culture in Progress Devi/IV: Voiding Method Bedside Commode Active Medications - Current Medications Current Medications: Generic Name Dose Route Start Last Admin Trade Name Freq PRN Reason Stop Dose Admin Acetaminophen 650 mg 04/21/22 20:02 04/23/22 07:54 Acetaminophen 325 Mg Tab PO 650 mg Q4H PRN Administration Pain, Mild (1-3) Albuterol 2.5 mg 04/21/22 20:02 Albuterol 2.5 Mg/3 Ml Nebu IH Q3HRT PRN Shortness Of Breath Aspirin 325 mg 04/22/22 10:00 04/24/22 09:25 Aspirin 325 Mg Tab PO 325 mg QDAY ADE Administration Atorvastatin Calcium 40 mg 04/21/22 22:00 04/24/22 21:58 Atorvastatin 40 Mg Tab PO 40 mg QHS ADE Administration Bisacodyl 10 mg 04/21/22 20:02 Bisacodyl 10 Mg Rect Supp [place] QDAY PRN Constipation Hydromorphone HCl 0.5 mg 04/21/22 20:02 Hydromorphone 0.5 Mg/0.5 Ml Inj IV Q23H PRN Pain , Severe (7-10) Ceftriaxone Sodium 1 gm in 50 mls @ 100 mls/hr 04/24/22 08:00 04/24/22 09:24 Rocephin/Ns 1 Gm/50 Ml IV 04/29/22 10:59 100 mls/hr Q24H ADE Administration Protocol Magnesium Hydroxide 30 ml 04/21/22 20:02 Magnesium Hydroxide (Mom) Oral Liqd Udc PO Q4H PRN Constipation Metoclopramide HCl 10 mg 04/21/22 20:02 Metoclopramide 10 Mg Tab PO Q6H PRN Nausea And Vomiting Ondansetron HCl 4 mg 04/21/22 20:02 Ondansetron 4 Mg/2 Ml Inj IV Q8H PRN Nausea And Vomiting Oxycodone/Acetaminophen 1 tab 04/21/22 20:02 04/24/22 21:58 Oxycodone /Acetaminophen 5-325mg Tab PO 1 tab Q16H PRN Administration Pain, Moderate (4-6) Promethazine HCl 25 mg 04/21/22 20:02 Promethazine 25 Mg Rect Supp [place] Q6H PRN Nausea And Vomiting Sodium Chloride 10 ml 04/21/22 20:02 Sodium Chloride 0.9% 10 Ml Flush Syringe IV PRN PRN LINE FLUSH
[2022-04-25] MEDS: cefTRIAXone/NS 1 GM/50 ML 1 GM/50 ML BAG IV SCH (09:56)
[2022-04-25] MEDS: ASPIRIN 325 MG TAB PO SCH (09:57)
[2022-04-25] MEDS: FAMOTIDINE 20 MG TAB PO SCH (23:19)
[2022-04-25] MEDS: oxyCODONE /ACETAMINOPHEN 5-325MG TAB PO PRN (23:19)
[2022-04-25 23:22] VITALS: BP 98/61
[2022-04-26] MEDS: cefTRIAXone/NS 1 GM/50 ML 1 GM/50 ML BAG IV SCH (08:51)
[2022-04-26] MEDS: ASPIRIN 325 MG TAB PO SCH ×2 (08:51→09:07)
[2022-04-26] MEDS: LEVOTHYROXINE 88 MCG TAB PO SCH ×2 (08:51→09:07)
[2022-04-26] MEDS: FAMOTIDINE 20 MG TAB PO SCH ×2 (08:52→09:08)
[2022-04-26] MEDS ORDERED: VALACYCLOVIR HCL 1000 MG PO SCH (10:00)
[2022-04-26] MEDS ORDERED: valACYclovir 500 MG TAB PO SCH (12:00)
--- NOTE | 2022-04-26 12:24 | Discharge Summary ---
Providers - Providers Date of Admission: 04/21/22 20:03 Date of discharge: 04/26/22 Attending physician: JURGEN FLETCHER 04/21/22 20:03 Occupational Therapy Evaluate and Treat [CONS] Routine Comment: Reason For Exam: Neuro deficits Physical Therapy Evaluation and Treat [CONS] Routine Comment: Reason For Exam: Neuro deficits 04/23/22 08:41 Consult to Physician [CONS] Routine Comment: Consulting Provider: GARRY OLSEN Physician Instructions: Reason For Exam: CVA Primary care physician: BRITTNEY BATES Hospitalization Condition: Fair Hospital course: --Acute CVA; Extensive neuro work-up is negative CVA work-up negative no evidence of CVA --Left hemiparesis/improved --Sepsis secondary to UTI present on admission --Urinary tract infection present on admission --Hyponatremia --mild[ C5 -C6 ]cervical spinal canal stenosis on MRI C-spine Disposition: HOME / SELF CARE / HOMELESS Final Discharge Diagnosis (Prints w/discharge instructions): Acute CVA. CVA work-up negative no evidence of CVA. Left hemiparesis/improved. Sepsis secondary to UTI present on admission. Urinary tract infection. Hyponatremia. mild[ C5 -C6 ]cervical spinal canal stenosis on MRI C-spine Time spent for discharge: 35 min Exam - Constitutional Vitals: Temp Pulse Resp BP Pulse Ox 98.5 F 68 18 98/61 99 04/25/22 23:21 04/25/22 23:21 04/26/22 00:00 04/25/22 23:21 04/26/22 00:00 Plan Activity: advance as tolerated Additional Instructions: If you have worsening symptoms contact MD or go to the nearest emergency room as needed. Advised to see primary care physician in 5 to 7 days. Advised to see private neurologist, private Ortho /spine physician per schedule. Fall precautions Follow up with: BRITTNEY BATES MD [Primary Care Provider] - 7 Days IZZY GIRALDO MD [Staff Physician] - 7 Days KATELYNN GARCIA MD [Staff Physician] - 7 Days Prescriptions: Cefuroxime Axetil [Cefuroxime] 500 mg PO BID #8 Aspirin EC [Halfprin EC] 81 mg PO QDAY #30 tablet. Acetaminophen/Codeine [Tylenol /Codeine # 3 tab] 1 tab PO Q4HR PRN #10 tablet PRN Reason: Pain
== END 2022-04-26 16:56 | disposition home or self-care (01) | DRG 872 ==
LOC: ED 18:02 → 3A 20:03
PROVIDERS: ADMIT Internal Medicine; ATTEND Internal Medicine
DX: A41.9 Sepsis, unspecified organism (principal); I69.354 Hemiplegia and hemiparesis following cerebral infarction affecting left non-dominant side; E87.1 Hypo-osmolality and hyponatremia; E66.9 Obesity, unspecified; I10 Essential (primary) hypertension; F41.9 Anxiety disorder, unspecified; E78.5 Hyperlipidemia, unspecified; E03.9 Hypothyroidism, unspecified; K21.9 Gastro-esophageal reflux disease without esophagitis; Z68.27 Body mass index [BMI] 27.0-27.9, adult; F84.0 Autistic disorder; M48.02 Spinal stenosis, cervical region; Z83.3 Family history of diabetes mellitus; Z82.49 Family history of ischemic heart disease and other diseases of the circulatory system; N39.0 Urinary tract infection, site not specified
CPT/HCPCS: 36415; 70450; 70551; 71045; 72141; 80048; 80053; 81001; 82140; 82550; 82553; 82962; 84484; 85007; 85025; 85610; 85670; 85730; 87040; 87086; 93005; 93306; 93880; G0378; J3490; C8929; J0696